=== PATIENT | male | born 1970 | race Caucasian/White ===

== ENCOUNTER 2017-07-19 23:23 | Emergency (ER) | payer OTHER ==
[2017-07-19 23:31] VITALS: BP 141/79; PULSE 69; RESP 18; TEMP 98.2
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
--- NOTE | 2017-07-20 00:31 | XR ---
EXAMINATION TYPE: XR ankle complete LT DATE OF EXAM: 07/20/2017 COMPARISON: NONE HISTORY: Pain TECHNIQUE: 3 views FINDINGS: Ankle mortise is anatomic. I see no fracture nor dislocation. There is an Achilles calcanea l spur. There is mild spurring of the anterior malleolus. IMPRESSION: Hypertrophic spurring. No fracture.
== END 2017-07-20 00:52 | disposition home or self-care (01) ==
LOC: EC 23:23
DX: S90.02XA Contusion of left ankle, initial encounter (principal); W22.8XXA Striking against or struck by other objects, initial encounter; Y92.69 Other specified industrial and construction area as the place of occurrence of the external cause; Y93.89 Activity, other specified; Y99.0 Civilian activity done for income or pay
CPT/HCPCS: 99283

== ENCOUNTER 2017-10-15 04:46 | Inpatient (IN) | payer OTHER ==
[2017-10-15] MEDS ORDERED: IPRATROPIUM-ALBUTEROL 3 ML NEB INHALATION STA ×2 (05:09→06:10)
[2017-10-15] MEDS ORDERED: methylPREDNISolone SOD SUCCI 125 MG/2 ML VIAL IV STA (05:12)
--- NOTE | 2017-10-15 05:15 | ED ---
General Adult HPI - General Chief complaint: Shortness of Breath Stated complaint: SOB Time Seen by Provider: 10/15/17 05:00 Source: patient, RN notes reviewed Mode of arrival: ambulatory Limitations: physical limitation - History of Present Illness Initial comments: Patient is a pleasant 47-year-old male presenting to the emergency department with difficulty in breathing. Symptoms started a couple of days ago. Symptoms have progressed especially today. Patient does have some cough. No fevers. Patient has had several episodes similar to this since the fall. 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 No history of COPD. No history of smoking. No chest pain. No fever. - Related Data Home Medications Medication Instructions Recorded Confirmed Albuterol Inhaler [Ventolin Hfa 2 puff INHALATION RT-Q4H PRN 08/21/17 08/21/17 Inhaler] Atorvastatin [Lipitor] 20 mg PO DAILY 08/21/17 08/21/17 Hydrochlorothiazide 25 mg PO DAILY 08/21/17 08/21/17 Lisinopril [Zestril] 20 mg PO DAILY 08/21/17 08/21/17 Sertraline [Zoloft] 100 mg PO DAILY 08/21/17 08/21/17 Previous Rx's Medication Instructions Recorded Levofloxacin [Levaquin] 500 mg PO DAILY #7 tab 08/23/17 predniSONE 10 mg PO DAILY #30 tab 08/23/17 Allergies Allergy/AdvReac Type Severity Reaction Status Date / Time No Known Allergies Allergy Verified 08/21/17 08:04 Review of Systems ROS Statement: Those systems with pertinent positive or pertinent negative responses have been documented in the HPI. ROS Other: All systems not noted in ROS Statement are negative. Constitutional: Denies: fever, chills Eyes: Denies: eye pain ENT: Denies: ear pain Respiratory: Reports: cough, dyspnea Cardiovascular: Denies: chest pain Endocrine: Denies: fatigue Gastrointestinal: Denies: abdominal pain Genitourinary: Denies: dysuria Musculoskeletal: Denies: back pain Skin: Denies: rash Neurological: Denies: weakness Past Medical History Past Medical History: Hyperlipidemia, Hypertension Additional Past Medical History / Comment(s): bronchitis History of Any Multi-Drug Resistant Organisms: None Reported Past Surgical History: No Surgical Hx Reported Additional Past Surgical History / Comment(s): spleen removed Past Psychological History: No Psychological Hx Reported Smoking Status: Never smoker Past Alcohol Use History: None Reported Past Drug Use History: None Reported General Exam Limitations: physical limitation General appearance: alert, obese Head exam: Present: atraumatic Eye exam: Present: normal appearance, PERRL ENT exam: Present: normal oropharynx Neck exam: Present: normal inspection Respiratory exam: Present: respiratory distress, wheezes, decreased breath sounds Cardiovascular Exam: Present: tachycardia GI/Abdominal exam: Present: soft. Absent: tenderness Extremities exam: Present: normal inspection. Absent: pedal edema, calf tenderness Neurological exam: Present: alert Psychiatric exam: Present: normal affect, normal mood Skin exam: Present: normal color Course Vital Signs 10/15/17 10/15/17 10/15/17 04:51 05:07 05:08 Temperature 97.8 F Pulse Rate 103 H 104 H Respiratory 28 H 28 H Rate Blood Pressure 136/86 O2 Sat by Pulse 91 L Oximetry 10/15/17 10/15/17 10/15/17 05:17 05:49 06:16 Temperature Pulse Rate 102 H 94 87 Respiratory 24 Rate Blood Pressure 151/79 O2 Sat by Pulse 95 Oximetry 10/15/17 06:26 Temperature Pulse Rate 89 Respiratory Rate Blood Pressure O2 Sat by Pulse Oximetry - Reevaluation(s) Reevaluation #1: 10/15/17 06:41 Patient still was short of breath with wheezing and given second breathing treatment. Patient still with some symptoms. Case was discussed in detail with Dr. zarate, who will admit for Dr. Mueller. Patient states he is scheduled to see Dr. Rae and he'll be placed on consult. EKG Findings - EKG Comments: EKG Findings:: Sinus tachycardia 102. TN 148. QRS 78. QT 312. QTC 406. Normal axis. Normal QRS. No acute ST change. Medical Decision Making - Lab Data Result diagrams: 10/15/17 05:00 10/15/17 05:00 Lab Results 10/15/17 10/15/17 10/15/17 Range/Units 05:00 05:00 05:00 WBC 14.7 H (3.8-10.6) k/uL RBC 5.09 (4.30-5.90) m/uL Hgb 15.1 (13.0-17.5) gm/dL Hct 46.2 (39.0-53.0) % MCV 90.8 (80.0-100.0) fL MCH 29.7 (25.0-35.0) pg MCHC 32.7 (31.0-37.0) g/dL RDW 14.2 (11.5-15.5) % Plt Count 324 (150-450) k/uL Neutrophils % 73 % Lymphocytes % 13 % Monocytes % 5 % Eosinophils % 7 % Basophils % 0 % Neutrophils # 10.7 H (1.3-7.7) k/uL Lymphocytes # 2.0 (1.0-4.8) k/uL Monocytes # 0.7 (0-1.0) k/uL Eosinophils # 1.0 H (0-0.7) k/uL Basophils # 0.1 (0-0.2) k/uL PT (9.0-12.0) sec INR (<1.2) APTT (22.0-30.0) sec D-Dimer (<0.60) mg/L FEU Sodium 140 (137-145) mmol/L Potassium 4.2 (3.5-5.1) mmol/L Chloride 103 (98-107) mmol/L Carbon Dioxide 26 (22-30) mmol/L Anion Gap 11 mmol/L BUN 30 H (9-20) mg/dL Creatinine 1.10 (0.66-1.25) mg/dL Est GFR (MDRD) Af Amer >60 (>60 ml/min/1.73 sqM) Est GFR (MDRD) Non-Af >60 (>60 ml/min/1.73 sqM) Glucose 116 H (74-99) mg/dL Calcium 9.6 (8.4-10.2) mg/dL Total Bilirubin 0.5 (0.2-1.3) mg/dL AST 26 (17-59) U/L ALT 39 (21-72) U/L Alkaline Phosphatase 63 (38-126) U/L Total Creatine Kinase 167 (55-170) U/L CK-MB (CK-2) 3.3 H* (0.0-2.4) ng/mL CK-MB (CK-2) Rel Index 2.0 Troponin I <0.012 (0.000-0.034) ng/mL NT-Pro-B Natriuret Pep pg/mL Total Protein 6.8 (6.3-8.2) g/dL Albumin 4.1 (3.5-5.0) g/dL Influenza Type A RNA (Not Detectd) Influenza Type B (PCR) (Not Detectd) 10/15/17 10/15/17 10/15/17 Range/Units 05:00 05:00 05:00 WBC (3.8-10.6) k/uL RBC (4.30-5.90) m/uL Hgb (13.0-17.5) gm/dL Hct (39.0-53.0) % MCV (80.0-100.0) fL MCH (25.0-35.0) pg MCHC (31.0-37.0) g/dL RDW (11.5-15.5) % Plt Count (150-450) k/uL Neutrophils % % Lymphocytes % % Monocytes % % Eosinophils % % Basophils % % Neutrophils # (1.3-7.7) k/uL Lymphocytes # (1.0-4.8) k/uL Monocytes # (0-1.0) k/uL Eosinophils # (0-0.7) k/uL Basophils # (0-0.2) k/uL PT 9.5 (9.0-12.0) sec INR 1.0 (<1.2) APTT 20.9 L (22.0-30.0) sec D-Dimer 0.85 H (<0.60) mg/L FEU Sodium (137-145) mmol/L Potassium (3.5-5.1) mmol/L Chloride (98-107) mmol/L Carbon Dioxide (22-30) mmol/L Anion Gap mmol/L BUN (9-20) mg/dL Creatinine (0.66-1.25) mg/dL Est GFR (MDRD) Af Amer (>60 ml/min/1.73 sqM) Est GFR (MDRD) Non-Af (>60 ml/min/1.73 sqM) Glucose (74-99) mg/dL Calcium (8.4-10.2) mg/dL Total Bilirubin (0.2-1.3) mg/dL AST (17-59) U/L ALT (21-72) U/L Alkaline Phosphatase (38-126) U/L Total Creatine Kinase (55-170) U/L CK-MB (CK-2) (0.0-2.4) ng/mL CK-MB (CK-2) Rel Index Troponin I (0.000-0.034) ng/mL NT-Pro-B Natriuret Pep 25 pg/mL Total Protein (6.3-8.2) g/dL Albumin (3.5-5.0) g/dL Influenza Type A RNA (Not Detectd) Influenza Type B (PCR) (Not Detectd) 10/15/17 Range/Units 05:14 WBC (3.8-10.6) k/uL RBC (4.30-5.90) m/uL Hgb (13.0-17.5) gm/dL Hct (39.0-53.0) % MCV (80.0-100.0) fL MCH (25.0-35.0) pg MCHC (31.0-37.0) g/dL RDW (11.5-15.5) % Plt Count (150-450) k/uL Neutrophils % % Lymphocytes % % Monocytes % % Eosinophils % % Basophils % % Neutrophils # (1.3-7.7) k/uL Lymphocytes # (1.0-4.8) k/uL Monocytes # (0-1.0) k/uL Eosinophils # (0-0.7) k/uL Basophils # (0-0.2) k/uL PT (9.0-12.0) sec INR (<1.2) APTT (22.0-30.0) sec D-Dimer (<0.60) mg/L FEU Sodium (137-145) mmol/L Potassium (3.5-5.1) mmol/L Chloride (98-107) mmol/L Carbon Dioxide (22-30) mmol/L Anion Gap mmol/L BUN (9-20) mg/dL Creatinine (0.66-1.25) mg/dL Est GFR (MDRD) Af Amer (>60 ml/min/1.73 sqM) Est GFR (MDRD) Non-Af (>60 ml/min/1.73 sqM) Glucose (74-99) mg/dL Calcium (8.4-10.2) mg/dL Total Bilirubin (0.2-1.3) mg/dL AST (17-59) U/L ALT (21-72) U/L Alkaline Phosphatase (38-126) U/L Total Creatine Kinase (55-170) U/L CK-MB (CK-2) (0.0-2.4) ng/mL CK-MB (CK-2) Rel Index Troponin I (0.000-0.034) ng/mL NT-Pro-B Natriuret Pep pg/mL Total Protein (6.3-8.2) g/dL Albumin (3.5-5.0) g/dL Influenza Type A RNA Not Detected (Not Detectd) Influenza Type B (PCR) Not Detected (Not Detectd) - Radiology Data Radiology results: image reviewed (Chest x-ray shows prominent pulmonary vascular. No consolidation.) Disposition Clinical Impression: Dyspnea Disposition: ADMITTED IP TO THIS HOSP Referrals: Barry Mueller DO [Primary Care Provider] - 1-2 days Decision Time: 06:43
[2017-10-15 05:19] LABS: Basophils # (A) 0.1 k/uL (0-0.2); Basophils % (A) 0 %; Eosinophils % (A) 7 %; HCT 46.2 % (39.0-53.0); HGB 15.1 gm/dL (13.0-17.5); Lymphocytes % (A) 13 %; MCH 29.7 pg (25.0-35.0); MCHC 32.7 g/dL (31.0-37.0); MCV 90.8 fL (80.0-100.0); Mean Platelet Volume 7.3; Monocytes # (A) 0.7 k/uL (0-1.0); Monocytes % (A) 5 %; Neutrophils # (A) 10.7 k/uL (1.3-7.7); Neutrophils % (A) 73 %; Platelet Count 324 k/uL (150-450); RBC 5.09 m/uL (4.30-5.90); RDW 14.2 % (11.5-15.5); WBC 14.7 k/uL (3.8-10.6)
[2017-10-15 05:28] LABS: Prothrombin Time 9.5 sec (9.0-12.0)
[2017-10-15 05:31] LABS: ALT 39 U/L (21-72); AST 26 U/L (17-59); Albumin 4.1 g/dL (3.5-5.0); Alkaline Phosphatase 63 U/L (38-126); Anion Gap 11 mmol/L; Blood Urea Nitrogen 30 mg/dL (9-20); Calcium 9.6 mg/dL (8.4-10.2); Carbon Dioxide 26 mmol/L (22-30); Chloride 103 mmol/L (98-107); Glucose 116 mg/dL (74-99); Potassium 4.2 mmol/L (3.5-5.1); Sodium 140 mmol/L (137-145); Total Bilirubin 0.5 mg/dL (0.2-1.3); Total Protein 6.8 g/dL (6.3-8.2)
[2017-10-15 05:35] LABS: Partial Thromboplastin Time 20.9 sec (22.0-30.0)
[2017-10-15 05:39] LABS: Creatine Kinase 167 U/L (55-170)
[2017-10-15 05:53] LABS: Troponin I <0.012 ng/mL (0.000-0.034)
[2017-10-15 05:58] LABS: Creatine Kinase MB 3.3 ng/mL (0.0-2.4)
--- NOTE | 2017-10-15 05:59 | XR ---
EXAM: XR Chest, 2 Views CLINICAL HISTORY: ITS.REASON XR Reason: difficulty breathing TECHNIQUE: Frontal and lateral views of the chest. COMPARISON: 08/22/2017. FINDINGS: Lungs: Prominent pulmonary vascularity. No confluent consolidation. Pleural space: Unremarkable. No pneumothorax. Heart: Stable cardiomediastinal silhouette. Mediastinum: See above. Bones/joints: Unremarkable. IMPRESSION: Prominent pulmonary vascularity. No confluent consolidation.
[2017-10-15] MEDS ORDERED: RX INFO: IV CONTRAST WAS GIVEN 1 EACH MISC MISCELLANE PRN (06:08)
[2017-10-15] MEDS ORDERED: IPRATROPIUM-ALBUTEROL 3 ML NEB INHALATION PRN (06:43)
--- NOTE | 2017-10-15 07:19 | CT ---
EXAMINATION TYPE: CT angio chest DATE OF EXAM: 10/15/2017 COMPARISON: NONE HISTORY: Chest pain, SOB for [address] DLP: 893.50 mGycm CONTRAST: CT chest with contrast and 3D reconstruction with MIP imaging is performed with IV Contrast, patient injected with 100 ml mL of Omnipaque 350. Contrast-enhanced CT of the chest was performed through the course of the pulmonary arteries with ulices g and mediastinal window settings submitted. 3D reconstruction with MIP imaging was also performed. PULMONARY ARTERIES: The pulmonary arteries and their major tributaries are patent. I do not see karen dence for sizable filling defect to suggest pulmonary embolic process. LUNGS: The lungs are clear and free of infiltrate. No evidence for atelectasis. No pulmonary nodule or mass is detected. No pleural effusion. MEDIASTINUM: Thoracic aorta is of normal caliber,however, evaluation is limited given timing of the contrast bolus. If there is concern for thoracic aortic pathology consider RAJIV. Correlate clinicall y . The heart is not enlarged. No evidence for mediastinal mass. No mediastinal lymph nodes greater than 1cm. HILAR STRUCTURES: No evidence for mass. No hilar lymph nodes greater than 1 cm. UPPER ABDOMEN: No significant abnormality is seen. IMPRESSION: 1. No evidence for Pulmonary embolism at this time.
[2017-10-15] MEDS: SODIUM CHLORIDE 0.9% 1,000 ML IV SCH ×2 (09:34→16:51)
[2017-10-15] MEDS: ATORVASTATIN 20 MG TAB PO SCH (10:19)
[2017-10-15] MEDS: HYDROCHLOROTHIAZIDE 25 MG TAB PO SCH (10:19)
[2017-10-15] MEDS: SERTRALINE 100 MG TAB PO SCH (10:19)
[2017-10-15] MEDS: LISINOPRIL 20 MG TAB PO SCH (10:19)
[2017-10-15] MEDS: ENOXAPARIN 40 MG/0.4 ML SYRINGE SQ SCH (10:19)
[2017-10-15] MEDS: IPRATROPIUM-ALBUTEROL 3 ML NEB INHALATION SCH ×3 (11:01→15:13)
[2017-10-15] MEDS ORDERED: methylPREDNISolone SOD SUCCI 125 MG/2 ML VIAL IV SCH (12:00)
[2017-10-15 12:27] LABS: Glucose,Whole Blood 195 mg/dL (75-99)
[2017-10-15] MEDS: INSULIN ASPART 100 UNIT/ML 1 ML 10 ML VIAL SQ SCH ×3 (13:36→22:37)
[2017-10-15 17:20] LABS: Glucose,Whole Blood 160 mg/dL (75-99)
--- NOTE | 2017-10-15 17:27 | HP ---
HISTORY AND PHYSICAL DATE OF ADMISSION: October 15, 2017. PRESENTING COMPLAINT: Short of breath, cough, wheezing. HISTORY OF PRESENTING COMPLAINT: This is a 47-year-old patient of Dr. Mueller. Here with his fiancee. Chronic stable medical conditions include hypertension, hyperlipidemia, depression, obesity. The patient presented with 3 days of increasing shortness of breath, cough, some brown sputum. No fever. No chills. The patient has been diagnosed last time with late onset asthma. The patient did have a positive home test for sleep apnea, did try CPAP machine, not with much help. The patient's weight is 158 pounds and he has put on about 20 pounds in the last 1 year. The patient was put on bronchodilators and steroids in the ER, with which he is feeling better. The patient is relatively active. 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 REVIEW OF SYSTEMS: CONSTITUTIONAL: None. HEENT: Occasional nasal stuffiness. Respiratory as above. Cardiovascular no chest pain. Gastrointestinal: None. Genitourinary none. Musculoskeletal: None. Dermatological and hematologic, lymphatic none. Psychiatry: Depression controlled. Neurological none. PAST HISTORY: Hypertension, hyperlipidemia, depression, splenectomy, asthma. PAST SURGICAL HISTORY: Splenectomy as a child. SOCIAL HISTORY: [employer], lives with his fijannettee. No smoking. No alcohol. FAMILY HISTORY: Coronary artery disease. HOME MEDICATIONS: 1. Zoloft 200 mg a day. 2. Zestril 20 mg a day. 3. Hydrochlorothiazide 25 mg a day. 4. Lipitor 20 mg p.o. daily. 5. Ventolin 2.5 q.4h p.r.n. 6. Ventolin HFA 2 puffs q.4h p.r.n. ALLERGIES: None. PHYSICAL EXAMINATION: Vital signs on presentation: Temperature 97.8, pulse 103, respiration 20, blood pressure 136/86, pulse ox 91% on room air. GENERAL APPEARANCE: Well built, BMI 44.9, sitting up, tired appearing. Eyes: Pupils equal. Conjunctivae normal. HEENT external appearance of nose and ears normal. Oral cavity normal. Neck: Short thick, JVD unable to assess. Mass not palpable. Respiratory effort increased. LUNGS: Diminished breath sounds. Prolonged expiration. Cardiovascular 1st and second sounds normal. No edema. Abdomen distended, soft. Liver and spleen not palpable. Lymphatics: No lymph node palpable in the neck and axillae. Psychiatry: Alert and oriented x3. Mood and affect normal. Neurological pupils equal. Cranial nerves grossly intact. Power and sensation grossly intact. INVESTIGATIONS: White count 14.7, hemoglobin 15.1, potassium 4.2, BUN 30, creatinine 1.10. ProBNP is 25. Troponin I is less than 0.012. Chest x-ray reveals some prominent pulmonary artery and some interstitial prominence. ASSESSMENT: 1. Possible acute exacerbation of mild persistent asthma. 2. Element of obesity hypoventilation syndrome. Patient has put on about 20 pounds in last 1 year. 3. Morbid obesity BMI 44.9. 4. Essential hypertension. 5. Hyperlipidemia. 6. Depression, not otherwise specified. 7. History of splenectomy. PLAN: Patient was put on nebulized bronchodilators in the ER and steroids to which he is feeling a bit better. The patient has increased the eosinophil in his blood work. We will have pulmonary look at that. Pulmonary was consulted. Home medications are resumed. Did have a lengthy talk with the patient and about weight loss. We will also student financial services counselor dietitian. Questions were answered. Copy to Dr. Mueller. MMODL / IJN: [id number] /
[2017-10-15] MEDS: ALBUTEROL NEBULIZED 2.5 MG/3 ML INHALATION SCH (19:35)
[2017-10-15 21:01] LABS: Glucose,Whole Blood 151 mg/dL (75-99)
[2017-10-16] MEDS: methylPREDNISolone SOD SUCCI 40 MG/ML 1 ML VIAL IV SCH ×4 (00:20→23:38)
[2017-10-16] MEDS: ALBUTEROL NEBULIZED 2.5 MG/3 ML INHALATION SCH ×4 (07:02→18:50)
[2017-10-16 07:35] LABS: Glucose,Whole Blood 135 mg/dL (75-99)
[2017-10-16] MEDS: INSULIN ASPART 100 UNIT/ML 1 ML 10 ML VIAL SQ SCH ×4 (07:54→21:36)
[2017-10-16] MEDS: ENOXAPARIN 40 MG/0.4 ML SYRINGE SQ SCH (07:54)
[2017-10-16] MEDS: SERTRALINE 100 MG TAB PO SCH (07:55)
[2017-10-16] MEDS: ATORVASTATIN 20 MG TAB PO SCH (07:55)
[2017-10-16] MEDS: LISINOPRIL 20 MG TAB PO SCH (07:55)
[2017-10-16] MEDS: HYDROCHLOROTHIAZIDE 25 MG TAB PO SCH (07:55)
--- NOTE | 2017-10-16 10:44 | ECHOF ---
Referral Reason:assess for Pulm HTN MEASUREMENTS -------- HEIGHT: 188.0 cm WEIGHT: 158.8 kg BP: 123/58 RVIDd: 3.3 cm (< 3.3) IVSd: 1.4 cm (0.6 - 1.1) LVIDd: 5.3 cm (3.9 - 5.3) LVPWd: 1.4 cm (0.6 - 1.1) IVSs: 1.8 cm LVIDs: 3.2 cm LVPWs: 1.7 cm LA Diam: 3.3 cm (2.7 - 3.8) Ao Diam: 3.7 cm (2.0 - 3.7) AV Cusp: 2.9 cm (1.5 - 2.6) MV EXCURSION: 18.807 mm (> 18.000) MV EF SLOPE: 67 mm/s (70 - 150) EPSS: 0.4 cm MV E Rocky: 0.95 m/s MV DecT: 193 ms MV A Rocky: 0.79 m/s MV E/A Ratio: 1.21 FINDINGS -------- Sinus rhythm. This was a technically difficult study with suboptimal views. The left ventricular size is normal. There is moderate concentric left ventricular hypertrophy. O verall left ventricular systolic function is normal with, an EF between 55 - 60 %. The right ventricle is mildly enlarged. The left atrium is normal in size. The right atrium was not well visualized. 5.0mg of Lumason was utilized for enhancement of images The aortic valve was not well visualized. The mitral valve is normal. There is trace to mild mitral regurgitation. No regurgitation noted The pulmonic valve was not well visualized. There is no pulmonic regurgitation present. The aortic root is dilated measuring 3.7cm. IVC Not well visulized. There is no pericardial effusion. CONCLUSIONS -------- 1. Sinus rhythm. 2. This was a technically difficult study with suboptimal views. 3. The left ventricular size is normal. 4. There is moderate concentric left ventricular hypertrophy. 5. Overall left ventricular systolic function is normal with, an EF between 55 - 60 %. 6. The right ventricle is mildly enlarged. 7. The left atrium is normal in size. 8. The right atrium was not well visualized. 9. 5.0mg of Lumason was utilized for enhancement of images 10. The aortic valve was not well visualized. 11. The mitral valve is normal. 12. There is trace to mild mitral regurgitation. 13. No regurgitation noted 14. The pulmonic valve was not well visualized. 15. There is no pulmonic regurgitation present. 16. The aortic root is dilated measuring 3.7cm. 17. IVC Not well visulized. 18. There is no pericardial effusion. SHAKER PLATE OPERATOR: Abeba Whitaker RDCS
[2017-10-16 11:17] VITALS: BMI 44.9
[2017-10-16 12:49] LABS: Glucose,Whole Blood 154 mg/dL (75-99)
--- NOTE | 2017-10-16 16:42 | P.PN ---
Progress Note - Text Progress Note Date: 10/16/17 DATE OF SERVICE: 10/16/2017 PRESENTING COMPLAINT: Short of breath cough wheezing HISTORY OF PRESENT ILLNESS: 47-year-old male who presented with 3 days of increasing shortness of breath cough some brown sputum, no fever no chills diagnosed last time he was admitted with late onset asthma. Positive home test for sleep apnea. Did try the CPAP but didn't help much. Patient's weight is 158 kg and is brought about 20 pounds over the last year. Put on bronchodilators and steroids in the ER and he feels better. 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 Admitted with acute exacerbation of mild persistent asthma. INTERVAL HISTORY: 10/16/2017: Patient lying in bed appears comfortable. Does have a pre-dry cough with some sputum production that is brownish in color. Short of breath with minimal exertion, continues to require oxygen support. Appetite is slowly improving. Eating between 50 and 75% of his meals. Ambulatory in the room. Mostly to and from the bathroom. Last BM prior to admission. REVIEW OF SYSTEMS: Done for constitutional ,cardiovascular, GI, pulmonary with relevant findings as above. CURRENT MEDICATIONS Albuterol sulfate, Lipitor, Lovenox, hydrochlorothiazide, NovoLog, Zestril, Solu -Medrol, Zoloft. PHYSICAL EXAM VITAL SIGNS: Temperature 97.0, pulse 85, respiratory rate 16, blood pressure 126/56, oxygen saturation 91% on room air. GENERAL APPEARANCE: Lying in bed, not in distress. HENT: Normocephalic, JVD not raised. Mass not palpable. Oral cavity normal, external appearance of ears and nose normal. EYES:Pupils equal. Conjunctiva normal. RESPIRATORY: Respiratory effort increased Lungs diminished bilaterally to auscultation. CARDIOVASCULAR: First and second sounds normal. No edema. ABDOMEN: Very obese Liver and spleen not palpable. No tenderness. No mass palpable. PSYCHIATRY: Alert and oriented x3. Mood and affect normal. INVESTIGATIONS: LABS: None new Echocardiogram: Sinus rhythm, EF between 55 and 60%, trace to mild mitral valve regurgitation ASSESSMENT: -Possible acute exacerbation of mild persistent asthma. -Medical obesity hypoventilation syndrome. Patient's been on about 20 pounds in the last year. -Morbid obesity body mass index 44.9. -Essential hypertension. -Hyperlipidemia. -Depression not otherwise specified. -History of splenectomy. PLAN: Continue nebulized bronchodilators and steroids which is helping him to feel somewhat better. Pulmonology consulted. Discussion had with the patient about weight loss and weight control. Both he and his fianc understood. Dietitian consulted. Plan of care discussed at the bedside with the patient they're agreeable. We will follow closely. EXPORT TRAFFIC DEPARTMENT MANAGER statement: Patient was seen and examined by nurse practitioner Valerie Tinsley and all elements of the case discussed with attending Dr. Lorenz
[2017-10-16 17:00] LABS: Glucose,Whole Blood 139 mg/dL (75-99)
[2017-10-16 21:05] LABS: Glucose,Whole Blood 208 mg/dL (75-99)
--- NOTE | 2017-10-16 21:52 | PN ---
PROGRESS NOTE DATE OF SERVICE: 10/16/2017 PRESENTING COMPLAINT: Shortness of breath. ATTENDING NOTE: The patient seen and examined by me. I discussed with my nurse practitioner, Ms. Tinsley. The patient presented with episodes of shortness of breath, cough, dark brown sputum. Still coughing up quite a bit. EXAMINATION: Afebrile, pulse 80, respirations 18, blood pressure 113/55, pulse ox 92% on room air. Decreased breath sounds. Some wheezing. CARDIOVASCULAR: First and second sounds normal. ASSESSMENT: 1. Acute exacerbation of mild intermittent asthma. 2. Element of obesity hypoventilation syndrome. Patient has put on further 20 pounds in the last 1 year. 3. Morbid obesity, BMI of 44.9. 4. Essential hypertension. 5. Hyperlipidemia. 6. Depression, not otherwise specified. 7. History of splenectomy. 8. Acute tracheobronchitis. PLAN: Continue current medication and treatment plan. Sputum will be sent off for fungal culture. Discussed with Dr. Rae from Pulmonary. The patient may need a bronchoscopy if does not improve significantly. MMODL / IJN: [id number] /
[2017-10-17] MEDS: MELATONIN 3 MG TABLET PO SCH ×2 (01:10→21:24)
[2017-10-17] MEDS: ALBUTEROL NEBULIZED 2.5 MG/3 ML INHALATION SCH ×4 (07:28→19:27)
[2017-10-17 07:43] LABS: Glucose,Whole Blood 128 mg/dL (75-99)
[2017-10-17] MEDS: INSULIN ASPART 100 UNIT/ML 1 ML 10 ML VIAL SQ SCH ×4 (08:07→21:25)
[2017-10-17] MEDS: ENOXAPARIN 40 MG/0.4 ML SYRINGE SQ SCH (10:22)
[2017-10-17] MEDS: HYDROCHLOROTHIAZIDE 25 MG TAB PO SCH (10:22)
[2017-10-17] MEDS: ATORVASTATIN 20 MG TAB PO SCH (10:22)
[2017-10-17] MEDS: methylPREDNISolone SOD SUCCI 40 MG/ML 1 ML VIAL IV SCH ×3 (10:22→22:50)
[2017-10-17] MEDS: LISINOPRIL 20 MG TAB PO SCH (10:23)
[2017-10-17] MEDS: SERTRALINE 100 MG TAB PO SCH (10:23)
[2017-10-17 12:02] LABS: Glucose,Whole Blood 125 mg/dL (75-99)
--- NOTE | 2017-10-17 12:32 | P.PN ---
Subjective Progress Note Date: 10/16/17 Principal diagnosis: Acute asthma exacerbation, tracheobronchitis purulent, severe morbid obesity obstructive sleep apnea, ALLERGIC asthma and ALLERGIC tracheobronchitis, hypertension and hypertensive cardiovascular disease 10/16/2017, patient seen eval examined during the round still very short of breath cough congestion is present patient is now producing purulent sputum6 pain and culture patient remains on IV steroids and breathing treatments, , tolerating well chest x-ray and CAT scan failed to reveal any new pneumonia like findings will monitor patient off of antibiotics for now more test results are available 47-year-old male who presented with 3 days of increasing shortness of breath cough some brown sputum, no fever no chills diagnosed last time he was admitted with late onset asthma. Positive home test for sleep apnea. Did try the CPAP but didn't help much. Patient's weight is 158 kg and is brought about 20 pounds over the last year. Put on bronchodilators and steroids in the ER and he feels better. 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 Admitted with acute exacerbation of mild persistent asthma. Objective - Vital Signs Vital signs: Vital Signs Temp 96.5 F L 10/17/17 07:00 Pulse 68 10/17/17 11:44 Resp 16 10/17/17 07:00 BP 139/88 10/17/17 07:00 Pulse Ox 95 10/17/17 07:31 Intake & Output 10/16/17 10/17/17 10/17/17 18:59 06:59 18:59 Intake Total 200 Balance 200 Weight 158.757 kg Intake: Oral 200 Other: # Voids 1 1 - Exam GENERAL APPEARANCE: Lying in bed, mild respiratory distress. HENT: Normocephalic, JVD not raised. Mass not palpable. Oral cavity normal, narrow oropharyngeal opening external appearance of ears and nose normal. EYES:Pupils equal. Conjunctiva normal. RESPIRATORY: Respiratory effort increased Lungs diminished bilaterally to auscultation, inspiratory expiratory wheezing and rhonchi present CARDIOVASCULAR: First and second sounds normal. No edema. ABDOMEN: Very obese Liver and spleen not palpable. No tenderness. No mass palpable. PSYCHIATRY: Alert and oriented x3. Mood and affect normal. 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 - Labs CBC & Chem 7: 10/15/17 05:00 10/15/17 05:00 Labs: Abnormal Lab Results - Last 24 Hours (Table) 10/16/17 10/16/17 10/16/17 Range/Units 12:15 16:55 20:56 POC Glucose (mg/dL) 154 H 139 H 208 H (75-99) mg/dL 10/17/17 10/17/17 Range/Units 07:30 11:57 POC Glucose (mg/dL) 128 H 125 H (75-99) mg/dL Microbiology - Last 24 Hours (Table) 10/16/17 11:00 Gram Stain - Preliminary Sputum 10/16/17 07:53 Fungal Culture - Preliminary Sputum - Imaging and Cardiology Chest x-ray: report reviewed, image reviewed CT scan - chest: report reviewed, image reviewed (Finding as noted above) Assessment and Plan Assessment: Acute asthma exacerbation Suspect purulent tracheobronchitis Developing COPD Severe morbid obesity and obesity hypoventilation Hypertension hypertensive cardiovascular disease Plan: Continue breathing treatments and IV steroids Follow up on sputum culture results and reports Continue supportive care care plan discussed with the patient and family at length will follow Time with Patient: Greater than 30
--- NOTE | 2017-10-17 12:35 | P.PN ---
Subjective Progress Note Date: 10/17/17 Principal diagnosis: Acute asthma exacerbation, tracheobronchitis purulent, severe morbid obesity obstructive sleep apnea, ALLERGIC asthma and ALLERGIC tracheobronchitis, hypertension and hypertensive cardiovascular disease 10/17/2017, patient seen eval examined during the rounds still have cough sputum is more purulent now sputum findings in Gram stain reviewed it appears to be mixed bacteria with no significant predominance is seen nightly color appearances history of the splenectomy in the past consider starting IV Rocephin with continuation of current therapeutic intervention, patient has significant exposure to molds with that we will check ALLERGY panel, patient will benefit from bronchoscopy will schedule sometime next week with further recommendations pending care plan discussed with patient and significant other at length 10/16/2017, patient seen eval examined during the round still very short of breath cough congestion is present patient is now producing purulent sputum6 pain and culture patient remains on IV steroids and breathing treatments, , tolerating well chest x-ray and CAT scan failed to reveal any new pneumonia like findings will monitor patient off of antibiotics for now more test results are available 47-year-old male who presented with 3 days of increasing shortness of breath cough some brown sputum, no fever no chills diagnosed last time he was admitted with late onset asthma. Positive home test for sleep apnea. Did try the CPAP but didn't help much. Patient's weight is 158 kg and is brought about 20 pounds over the last year. Put on bronchodilators and steroids in the ER and he feels better. 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 Admitted with acute exacerbation of mild persistent asthma. Objective - Vital Signs Vital signs: Vital Signs Temp 96.5 F L 10/17/17 07:00 Pulse 68 10/17/17 11:44 Resp 16 10/17/17 07:00 BP 139/88 10/17/17 07:00 Pulse Ox 95 10/17/17 07:31 Intake & Output 10/16/17 10/17/17 10/17/17 18:59 06:59 18:59 Intake Total 200 Balance 200 Weight 158.757 kg Intake: Oral 200 Other: # Voids 1 1 - Exam GENERAL APPEARANCE: Lying in bed, mild respiratory distress. HENT: Normocephalic, JVD not raised. Mass not palpable. Oral cavity normal, narrow oropharyngeal opening external appearance of ears and nose normal. EYES:Pupils equal. Conjunctiva normal. RESPIRATORY: Respiratory effort increased Lungs diminished bilaterally to auscultation, inspiratory expiratory wheezing and rhonchi present CARDIOVASCULAR: First and second sounds normal. No edema. ABDOMEN: Very obese Liver and spleen not palpable. No tenderness. No mass palpable. PSYCHIATRY: Alert and oriented x3. Mood and affect normal. 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 - Labs CBC & Chem 7: 10/15/17 05:00 10/15/17 05:00 Labs: Abnormal Lab Results - Last 24 Hours (Table) 10/16/17 10/16/17 10/16/17 Range/Units 12:15 16:55 20:56 POC Glucose (mg/dL) 154 H 139 H 208 H (75-99) mg/dL 10/17/17 10/17/17 Range/Units 07:30 11:57 POC Glucose (mg/dL) 128 H 125 H (75-99) mg/dL Microbiology - Last 24 Hours (Table) 10/16/17 11:00 Gram Stain - Preliminary Sputum 10/16/17 07:53 Fungal Culture - Preliminary Sputum Assessment and Plan Assessment: Acute asthma exacerbation purulent tracheobronchitis Developing COPD Severe morbid obesity and obesity hypoventilation Hypertension hypertensive cardiovascular disease Asplenia/status post a splenectomy and remote past Plan: Continue breathing treatments and IV steroids Follow up on sputum culture results and reports, preliminary report reviewed Continue supportive care care plan discussed with the patient and family at length will follow Initiate patient on the IV Rocephin send labs for ALLERGIC asthma Time with Patient: Greater than 30
[2017-10-17] MEDS: cefTRIAXone IN SWFI 1,000 MG/10 ML SYRINGE IVP SCH (13:19)
[2017-10-17] MEDS: AZITHROMYCIN 500 MG TAB PO SCH (13:20)
--- NOTE | 2017-10-17 13:20 | CONS ---
CONSULTATION DATE OF SERVICE: 10/15/2017. REASON FOR CONSULTATION: Cough, shortness of breath and wheezing. HISTORY OF PRESENTING ILLNESS: Mr. Bora Sands is seen, evaluated and examined on October 15, 2017, for developing and worsening of shortness of breath and breathing difficulty. This is a delayed dictation of services provided on that day. The patient presented in the emergency department with a 3- to 4-day history of progressive increasing breathing difficulty, cough, chest tightness. The patient has a history of chronic persistent severe asthma, has been on bronchodilator; however, his symptoms have not been improving significantly. He has been treated as an outpatient with oral prednisone steroid without any significant continued relief. Of note that once he comes off of the steroids, his symptoms relapse. The patient, however, attributes ongoing symptoms to fumes and mist exposure at his workplace as well. In addition to the above, patient has a severe degree of sleep-disordered breathing and sleep apnea. He has used a CPAP machine. He has acquired over 20 to 30 pounds in the last 6 months to a year as well. Since he has been placed on bronchodilators and steroids he is feeling slightly better. I was asked to evaluate this patient further. PAST MEDICAL HISTORY: 1. Severe morbid obesity. 2. Obstructive sleep apnea. 3. Hypertension, hypertensive cardiovascular disease. 4. Dyslipidemia. 5. Mood disorder. 6. Depression. 7. History of splenectomy. 8. Chronic persistent asthma. PAST SURGICAL HISTORY: Significant for splenectomy. FAMILY HISTORY AND SOCIAL HISTORY: Lives with anamaria. Denies any smoking, ethanol substance or substance use. 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 ALLERGIES: NO KNOWN DRUG ALLERGY. HOME MEDICATIONS: 1. Ventolin HFA 2 puffs 4 times a day as needed. 2. Lipitor 20 mg daily. 3. Hydrochlorothiazide 25 mg daily. 4. Zestril 20 mg daily. 5. Zoloft 100 mg daily. 6. Prednisone tapering dose 10 mg daily lately. 7. Levaquin 500 mg daily. REVIEW OF SYSTEMS: PLANT GUIDE: Denies any loss of consciousness or hemiparesis. CARDIORESPIRATORY: Otherwise unremarkable and noncontributory except as dictated above. GI, : Otherwise unremarkable and noncontributory. MUSCULOSKELETAL AND DERMATOLOGICAL: Unremarkable and noncontributory. CURRENT MEDICATIONS: Current medications while in the hospital include: 1. Tylenol as needed. 2. DuoNeb unit dose 4 times a day and as needed. 3. Xanax 0.5 four times a day. 4. Lovenox 40 mg daily. 5. HydroDIURIL 25 mg daily. 6. Sliding scale insulin. 7. Zestril 20 mg daily. 8. Melatonin 3 mg at bedtime. 9. Solu-Medrol 40 mg daily. 10.Zoloft 200 mg daily. 11.Solu-Medrol 40 mg q.8. PHYSICAL EXAMINATION: Blood pressure is 136/86. Respiratory rate is 20. Heart rate is 110, temperature 98, saturation 91% on room air. BMI is 45. HEENT: Atraumatic, normocephalic. Pharynx is clear. Narrow pharyngeal opening present. Mallampati grade 4. Nasal mucosa is congested. Inferior turbinate hypertrophy. NECK: Supple without any lymphadenopathy, jugular venous distention or carotid bruit. LUNGS: Bilateral inspiratory and expiratory wheezing and rhonchi are present with prolonged expiratory phase. HEART: Regular rate, rhythm. S1, S2 audible. ABDOMEN: Soft. No rebound, rigidity. EXTREMITIES: Plus one peripheral pulses. NEUROLOGICAL EXAMINATION: Otherwise awake and alert. LABS: Reviewed. Medications reviewed. White cell count is 14,700, hemoglobin 15, hematocrit 46, platelet count of 324,000. PT, INR, PTT within normal limits. D-dimer is 0.85. Sodium 140, potassium 4.2. BUN and creatinine are 30 and 1.1. Glucose 116. CK-MB is 3.3. Influenza A and B both negative. BNP is 25. RADIOGRAPHIC STUDIES: X-ray and CT scan reviewed. EKG performed in the emergency department revealed sinus tachycardia; otherwise unremarkable EKG. The chest x-ray performed on October 15, 2017, revealed prominent interstitial markings and pulmonary vasculature; however, no consolidation or active infiltrate identified. No mass noted. CT scan of the chest performed on October 15 revealed absence of pulmonary embolism, lungs unremarkable. No significant mediastinal abnormality identified. IMPRESSION: 1. Acute asthmatic bronchitis with purulent tracheobronchitis. 2. Baseline developing chronic obstructive pulmonary disease related to chronic persistent severe asthma with acute exacerbation. 3. Severe morbid obesity with component of obesity hypoventilation. BMI over 45. 4. Hypertension hypertensive cardiovascular disease. 5. Dyslipidemia. 6. History of prior splenectomy. PLAN AND RECOMMENDATIONS: I agree with IV steroids, breathing treatments. Monitor clinical course closely. Once the sputum is obtained, we will review that. Further recommendations pending. Increase activity as tolerated. Patient has been counseled about sleep-disordered breathing and sleep apnea and effects on cardiovascular, cerebrovascular, endocrine and psychosocial. Will follow with you closely. Further recommendations pending. SOURCE OF CONSULT: October 15, 2017. MMODL / IJN: [id number] /
--- NOTE | 2017-10-17 16:56 | PN ---
PROGRESS NOTE DATE OF SERVICE: 10/17/2017 This 47-year-old gentleman with a past history of multiple medical problems including asthma, was admitted with acute asthma acute exacerbation. The patient also had extensive exposure to mold at work place. Pulmonary is following the patient closely. Lung cultures have been sought. The patient is closely monitored. PAST MEDICAL HISTORY: Reviewed. REVIEW OF SYSTEMS: CARDIOVASCULAR: No angina. RESPIRATORY: As mentioned earlier. GI: As mentioned earlier. : No dysuria. NERVOUS SYSTEM: No numbness or weakness. CURRENT MEDICATIONS: 1. Ventolin 2.5 q.i.d. 2. Lipitor 20 mg. 4. Rocephin 1 g daily. 5. Lovenox 40 mg subcu. 6. HydroDIURIL 25 mg daily. 7. NovoLog q.h.s. 8. Zestril 20 mg. 9. Melatonin. 10.Solu-Medrol. 11.Zoloft. PHYSICAL EXAM: Patient is alert, oriented x3. Pulse 81, blood pressure 141/84, respiration 18, temperature 97.4, pulse ox 93% on room air. HEENT: Conjunctivae normal. Oral mucous moist. NECK: No jugular venous distention. No carotid bruit. No thyroid enlargement. CARDIOVASCULAR: S1, S2. No S3, no S4. RESPIRATORY: Breath sounds diminished in the bases. Bilateral scattered rhonchi and crackles. Expiratory wheezing also heard. ABDOMEN: Soft, nontender. No mass palpable. LEGS: No edema, no swelling. NERVOUS SYSTEM: Higher functions as mentioned earlier. Moves all four limbs. No focal deficits LYMPHATICS: No ulcer, rash or bleeding. SKIN: No ulcer, rash or bleeding. LABS: At this time shows Accu-Cheks are 128, 125. WBC 14.7. Chest CTA showed no evidence of pulmonary embolism and 2D echo, which was done earlier, showed ejection fraction of 50- 60%. ASSESSMENT: 1. Acute bronchial asthma acute exacerbation with acute purulent tracheobronchitis. 2. History of exposure to black mold. 3. Increased WBC. 4. Elevated random blood sugar secondary to steroids. 5. Obesity with body mass index of 44.9. 6. History of hypertension. 7. History hyperlipidemia. 8. History of sleep apnea. 9. History bronchitis. 10.History of obstructive sleep apnea. 11.History of depression. RECOMMENDATIONS AND DISCUSSION: This 47-year-old gentleman who presented with multiple complex medical issues, will monitor the patient closely. Continue the current management and symptomatic treatment. Otherwise at this time I recommend continue with bronchodilators. Continue with empiric antibiotics. I recommend to monitor blood sugars closely. Also recommend allergy testing in an outpatient setting. Prognosis guarded because of multiple complex medical issues. Further recommendations to follow. Closely follow with Pulmonary, Dr. Rae. CHRISTINE / CHESTERN: [id number] / [facility] HOSPITALClaudia
[2017-10-17 16:57] LABS: Glucose,Whole Blood 148 mg/dL (75-99)
[2017-10-17] MEDS: SYMBICORT 160-4.5 MCG INHALER INHALATION SCH (19:41)
[2017-10-17 21:22] LABS: Glucose,Whole Blood 145 mg/dL (75-99)
[2017-10-17] MEDS: MONTELUKAST 10 MG TAB PO SCH (21:24)
[2017-10-18 07:15] LABS: Glucose,Whole Blood 114 mg/dL (75-99)
[2017-10-18] MEDS: INSULIN ASPART 100 UNIT/ML 1 ML 10 ML VIAL SQ SCH ×4 (07:54→22:05)
[2017-10-18] MEDS: SYMBICORT 160-4.5 MCG INHALER INHALATION SCH ×2 (09:07→20:49)
[2017-10-18] MEDS: ALBUTEROL NEBULIZED 2.5 MG/3 ML INHALATION SCH ×4 (09:07→20:49)
[2017-10-18 09:13] LABS: Basophils % (A) 0 %; Eosinophils # (A) 0.1 k/uL (0-0.7); Eosinophils % (A) 0 %; HCT 47.2 % (39.0-53.0); HGB 14.6 gm/dL (13.0-17.5); Lymphocytes # (A) 1.1 k/uL (1.0-4.8); Lymphocytes % (A) 7 %; MCH 29.3 pg (25.0-35.0); MCV 94.5 fL (80.0-100.0); Mean Platelet Volume 7.7; Monocytes # (A) 0.6 k/uL (0-1.0); Monocytes % (A) 3 %; Neutrophils % (A) 89 %; Platelet Count 297 k/uL (150-450); RBC 4.99 m/uL (4.30-5.90); RDW 14.5 % (11.5-15.5); WBC 16.8 k/uL (3.8-10.6)
[2017-10-18 09:43] LABS: ALT 35 U/L (21-72); AST 23 U/L (17-59); Albumin 3.5 g/dL (3.5-5.0); Alkaline Phosphatase 51 U/L (38-126); Anion Gap 10 mmol/L; Blood Urea Nitrogen 26 mg/dL (9-20); Calcium 9.8 mg/dL (8.4-10.2); Carbon Dioxide 26 mmol/L (22-30); Chloride 102 mmol/L (98-107); Glucose 143 mg/dL (74-99); Potassium 5.1 mmol/L (3.5-5.1); Sodium 138 mmol/L (137-145); Total Bilirubin 0.7 mg/dL (0.2-1.3); Total Protein 6.3 g/dL (6.3-8.2)
[2017-10-18] MEDS: methylPREDNISolone SOD SUCCI 40 MG/ML 1 ML VIAL IV SCH ×3 (10:00→23:47)
[2017-10-18] MEDS: ATORVASTATIN 20 MG TAB PO SCH (10:00)
[2017-10-18] MEDS: HYDROCHLOROTHIAZIDE 25 MG TAB PO SCH (10:01)
[2017-10-18] MEDS: cefTRIAXone IN SWFI 1,000 MG/10 ML SYRINGE IVP SCH (10:01)
[2017-10-18] MEDS: AZITHROMYCIN 500 MG TAB PO SCH (10:01)
[2017-10-18] MEDS: LISINOPRIL 20 MG TAB PO SCH (10:01)
[2017-10-18] MEDS: SERTRALINE 100 MG TAB PO SCH (10:01)
[2017-10-18] MEDS: ENOXAPARIN 40 MG/0.4 ML SYRINGE SQ SCH (10:01)
[2017-10-18 12:11] LABS: Glucose,Whole Blood 127 mg/dL (75-99)
[2017-10-18 16:48] LABS: Glucose,Whole Blood 152 mg/dL (75-99)
[2017-10-18 20:33] LABS: Glucose,Whole Blood 186 mg/dL (75-99)
[2017-10-18] MEDS: MONTELUKAST 10 MG TAB PO SCH (21:25)
[2017-10-18] MEDS: MELATONIN 3 MG TABLET PO SCH (21:25)
--- NOTE | 2017-10-18 22:30 | PN ---
PROGRESS NOTE DATE OF SERVICE: 10/18/2017. This 47-year-old gentleman was admitted after asthma acute exacerbation is being closely monitored. Dr. Rae is planning a bronchoscopy tomorrow. No chest pain. No palpitations. No fever. EXAM: Alert and oriented times three. Pulse 85. Blood pressure 161/83, respiratory rate 16, temperature 97.7, pulse ox 98% on room air. HEENT is conjunctivae normal. Neck is no jugular venous distention. Cardiovascular: S1, S2. Respirations: Breath sounds diminished in the bases. Scattered rhonchi and crackles. Abdomen is soft, nontender. Legs are no edema. No swelling. Central nervous system: No focal deficits. LABS: WBC 16.8, hemoglobin 14.6, glucose 143. ASSESSMENT: 1. Acute bronchial asthma acute exacerbation with acute purulent tracheobronchitis. 2. History of exposure to black mold. 3. Increased WBC. 4. Elevated random blood sugar possibly secondary to steroids. 5. Obesity with body mass index of 44.9. 6. Hypertension. 7. Hyperlipidemia. 8. History of sleep apnea. 9. History of bronchitis. 10.History of obstructive sleep apnea. 11.History of depression. RECOMMENDATIONS AND DISCUSSION: To continue current medications, management and symptomatic treatment. Continue steroids. Continue bronchodilators and antibiotics. Possible bronchoscopy per Pulmonary. Guarded prognosis because of multiple complex medical issues. MMODL / IJN: [id number] /
[2017-10-19 07:21] LABS: Glucose,Whole Blood 123 mg/dL (75-99)
[2017-10-19] MEDS: SYMBICORT 160-4.5 MCG INHALER INHALATION SCH ×2 (07:27→19:37)
[2017-10-19] MEDS: ALBUTEROL NEBULIZED 2.5 MG/3 ML INHALATION SCH ×4 (07:27→19:37)
[2017-10-19] MEDS: INSULIN ASPART 100 UNIT/ML 1 ML 10 ML VIAL SQ SCH ×4 (08:05→22:11)
[2017-10-19 08:28] LABS: Basophils % (A) 0 %; Eosinophils % (A) 0 %; HCT 48.5 % (39.0-53.0); HGB 15.1 gm/dL (13.0-17.5); Lymphocytes # (A) 1.1 k/uL (1.0-4.8); Lymphocytes % (A) 7 %; MCH 28.8 pg (25.0-35.0); MCHC 31.1 g/dL (31.0-37.0); MCV 92.8 fL (80.0-100.0); Mean Platelet Volume 7.4; Monocytes # (A) 0.7 k/uL (0-1.0); Monocytes % (A) 4 %; Neutrophils # (A) 14.8 k/uL (1.3-7.7); Neutrophils % (A) 88 %; Platelet Count 345 k/uL (150-450); RBC 5.23 m/uL (4.30-5.90); RDW 14.2 % (11.5-15.5); WBC 16.8 k/uL (3.8-10.6)
[2017-10-19 08:31] LABS: Anion Gap 9 mmol/L; Blood Urea Nitrogen 29 mg/dL (9-20); Calcium 10.1 mg/dL (8.4-10.2); Carbon Dioxide 27 mmol/L (22-30); Chloride 101 mmol/L (98-107); Glucose 123 mg/dL (74-99); Potassium 5.6 mmol/L (3.5-5.1); Sodium 137 mmol/L (137-145)
[2017-10-19] MEDS: SERTRALINE 100 MG TAB PO SCH (10:12)
[2017-10-19] MEDS: ATORVASTATIN 20 MG TAB PO SCH (10:13)
[2017-10-19] MEDS: HYDROCHLOROTHIAZIDE 25 MG TAB PO SCH (10:13)
[2017-10-19] MEDS: ENOXAPARIN 40 MG/0.4 ML SYRINGE SQ SCH (10:13)
[2017-10-19] MEDS: methylPREDNISolone SOD SUCCI 40 MG/ML 1 ML VIAL IV SCH ×3 (10:13→23:42)
[2017-10-19] MEDS: LISINOPRIL 20 MG TAB PO SCH (10:13)
[2017-10-19] MEDS: AZITHROMYCIN 500 MG TAB PO SCH (10:13)
[2017-10-19] MEDS: cefTRIAXone IN SWFI 1,000 MG/10 ML SYRINGE IVP SCH (10:21)
[2017-10-19] MEDS ORDERED: SODIUM POLYSTYRENE SULFONATE 15 GM/60 ML BOTTLE PO STA (11:04)
[2017-10-19 12:37] LABS: Glucose,Whole Blood 103 mg/dL (75-99)
--- NOTE | 2017-10-19 12:44 | P.PN ---
Subjective Progress Note Date: 10/18/17 (Late entry note) Principal diagnosis: Acute asthma exacerbation, tracheobronchitis purulent, severe morbid obesity obstructive sleep apnea, ALLERGIC asthma and ALLERGIC tracheobronchitis, hypertension and hypertensive cardiovascular disease 10/18/2017, patient seen eval examined during the rounds clinically overall not much change cough congestion shortness of breath is still there gets wheezing however does respond well with the breathing treatments and antibiotics 10/17/2017, patient seen eval examined during the rounds still have cough sputum is more purulent now sputum findings in Gram stain reviewed it appears to be mixed bacteria with no significant predominance is seen nightly color appearances history of the splenectomy in the past consider starting IV Rocephin with continuation of current therapeutic intervention, patient has significant exposure to molds with that we will check ALLERGY panel, patient will benefit from bronchoscopy will schedule sometime next week with further recommendations pending care plan discussed with patient and significant other at length 10/16/2017, patient seen eval examined during the round still very short of breath cough congestion is present patient is now producing purulent sputum6 pain and culture patient remains on IV steroids and breathing treatments, , tolerating well chest x-ray and CAT scan failed to reveal any new pneumonia like findings will monitor patient off of antibiotics for now more test results are available 47-year-old male who presented with 3 days of increasing shortness of breath cough some brown sputum, no fever no chills diagnosed last time he was admitted with late onset asthma. Positive home test for sleep apnea. Did try the CPAP but didn't help much. Patient's weight is 158 kg and is brought about 20 pounds over the last year. Put on bronchodilators and steroids in the ER and he feels better. 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 Admitted with acute exacerbation of mild persistent asthma. Objective - Vital Signs Vital signs: Vital Signs Temp 96.6 F L 10/19/17 07:00 Pulse 80 10/19/17 11:37 Resp 16 10/19/17 07:00 BP 140/84 10/19/17 07:00 Pulse Ox 94 L 10/19/17 07:00 Intake & Output 10/18/17 10/19/17 10/19/17 18:59 06:59 18:59 Intake Total 1200 Balance 1200 Intake: Oral 1200 Other: # Voids 3 2 - Exam GENERAL APPEARANCE: Lying in bed, mild respiratory distress. HENT: Normocephalic, JVD not raised. Mass not palpable. Oral cavity normal, narrow oropharyngeal opening external appearance of ears and nose normal. EYES:Pupils equal. Conjunctiva normal. RESPIRATORY: Respiratory effort increased Lungs diminished bilaterally to auscultation, inspiratory expiratory wheezing and rhonchi present CARDIOVASCULAR: First and second sounds normal. No edema. ABDOMEN: Very obese Liver and spleen not palpable. No tenderness. No mass palpable. PSYCHIATRY: Alert and oriented x3. Mood and affect normal. 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 - Labs CBC & Chem 7: 10/19/17 07:31 10/19/17 07:31 Labs: Abnormal Lab Results - Last 24 Hours (Table) 10/18/17 10/18/17 10/18/17 Range/Units 08:14 16:46 20:32 WBC (3.8-10.6) k/uL Neutrophils # (1.3-7.7) k/uL Potassium (3.5-5.1) mmol/L BUN (9-20) mg/dL Glucose (74-99) mg/dL POC Glucose (mg/dL) 152 H 186 H (75-99) mg/dL IgE 188.00 H (0.00-114.00) IU/mL 10/19/17 10/19/17 10/19/17 Range/Units 07:17 07:31 07:31 WBC 16.8 H (3.8-10.6) k/uL Neutrophils # 14.8 H (1.3-7.7) k/uL Potassium 5.6 H (3.5-5.1) mmol/L BUN 29 H (9-20) mg/dL Glucose 123 H (74-99) mg/dL POC Glucose (mg/dL) 123 H (75-99) mg/dL IgE (0.00-114.00) IU/mL 10/19/17 Range/Units 12:24 WBC (3.8-10.6) k/uL Neutrophils # (1.3-7.7) k/uL Potassium (3.5-5.1) mmol/L BUN (9-20) mg/dL Glucose (74-99) mg/dL POC Glucose (mg/dL) 103 H (75-99) mg/dL IgE (0.00-114.00) IU/mL Microbiology - Last 24 Hours (Table) 10/16/17 11:00 Gram Stain - Final Sputum Sputum Culture - Final Final sputum culture is normal respiratory papa Assessment and Plan Assessment: Acute asthma exacerbation purulent tracheobronchitis Developing COPD Severe morbid obesity and obesity hypoventilation Hypertension hypertensive cardiovascular disease Asplenia/status post a splenectomy and remote past Plan: Continue breathing treatments and IV steroids Follow up on sputum culture results and reports, preliminary report reviewed Continue supportive care care plan discussed with the patient and family at length will follow Initiate patient on the IV Rocephin send labs for ALLERGIC asthma Time with Patient: Greater than 30
--- NOTE | 2017-10-19 12:46 | P.PN ---
Subjective Progress Note Date: 10/19/17 Principal diagnosis: Acute asthma exacerbation, tracheobronchitis purulent, severe morbid obesity obstructive sleep apnea, ALLERGIC asthma and ALLERGIC tracheobronchitis, hypertension and hypertensive cardiovascular disease 10/19/2017, patient seen eval reexamined during the rounds care plan discussed with the patient patient and the mother present at bedside as well as as well as the RN clinically slightly better with wheezing cough congestion is improved but still feel thick tenacious secretions patient is being scheduled for bronchoscopy and bronchoalveolar lavage and possible biopsies any significant pathology in the airways have been noted he is tentatively being scheduled for a tomorrow procedure explained to the patient and family at length risk complication and alternative also explained 10/18/2017, patient seen eval examined during the rounds clinically overall not much change cough congestion shortness of breath is still there gets wheezing however does respond well with the breathing treatments and antibiotics 10/17/2017, patient seen eval examined during the rounds still have cough sputum is more purulent now sputum findings in Gram stain reviewed it appears to be mixed bacteria with no significant predominance is seen nightly color appearances history of the splenectomy in the past consider starting IV Rocephin with continuation of current therapeutic intervention, patient has significant exposure to molds with that we will check ALLERGY panel, patient will benefit from bronchoscopy will schedule sometime next week with further recommendations pending care plan discussed with patient and significant other at length 10/16/2017, patient seen eval examined during the round still very short of breath cough congestion is present patient is now producing purulent sputum6 pain and culture patient remains on IV steroids and breathing treatments, , tolerating well chest x-ray and CAT scan failed to reveal any new pneumonia like findings will monitor patient off of antibiotics for now more test results are available 47-year-old male who presented with 3 days of increasing shortness of breath cough some brown sputum, no fever no chills diagnosed last time he was admitted with late onset asthma. Positive home test for sleep apnea. Did try the CPAP but didn't help much. Patient's weight is 158 kg and is brought about 20 pounds over the last year. Put on bronchodilators and steroids in the ER and he feels better. 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 Admitted with acute exacerbation of mild persistent asthma. Objective - Vital Signs Vital signs: Vital Signs Temp 96.6 F L 10/19/17 07:00 Pulse 80 10/19/17 11:37 Resp 16 10/19/17 07:00 BP 140/84 10/19/17 07:00 Pulse Ox 94 L 10/19/17 07:00 Intake & Output 10/18/17 10/19/17 10/19/17 18:59 06:59 18:59 Intake Total 1200 Balance 1200 Intake: Oral 1200 Other: # Voids 3 2 - Exam GENERAL APPEARANCE: Lying in bed, mild respiratory distress. HENT: Normocephalic, JVD not raised. Mass not palpable. Oral cavity normal, narrow oropharyngeal opening external appearance of ears and nose normal. EYES:Pupils equal. Conjunctiva normal. RESPIRATORY: Respiratory effort increased Lungs diminished bilaterally to auscultation, inspiratory expiratory wheezing and rhonchi present CARDIOVASCULAR: First and second sounds normal. No edema. ABDOMEN: Very obese Liver and spleen not palpable. No tenderness. No mass palpable. PSYCHIATRY: Alert and oriented x3. Mood and affect normal. 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 - Labs CBC & Chem 7: 10/19/17 07:31 10/19/17 07:31 Labs: Abnormal Lab Results - Last 24 Hours (Table) 10/18/17 10/18/17 10/18/17 Range/Units 08:14 16:46 20:32 WBC (3.8-10.6) k/uL Neutrophils # (1.3-7.7) k/uL Potassium (3.5-5.1) mmol/L BUN (9-20) mg/dL Glucose (74-99) mg/dL POC Glucose (mg/dL) 152 H 186 H (75-99) mg/dL IgE 188.00 H (0.00-114.00) IU/mL 10/19/17 10/19/17 10/19/17 Range/Units 07:17 07:31 07:31 WBC 16.8 H (3.8-10.6) k/uL Neutrophils # 14.8 H (1.3-7.7) k/uL Potassium 5.6 H (3.5-5.1) mmol/L BUN 29 H (9-20) mg/dL Glucose 123 H (74-99) mg/dL POC Glucose (mg/dL) 123 H (75-99) mg/dL IgE (0.00-114.00) IU/mL 10/19/17 Range/Units 12:24 WBC (3.8-10.6) k/uL Neutrophils # (1.3-7.7) k/uL Potassium (3.5-5.1) mmol/L BUN (9-20) mg/dL Glucose (74-99) mg/dL POC Glucose (mg/dL) 103 H (75-99) mg/dL IgE (0.00-114.00) IU/mL Microbiology - Last 24 Hours (Table) 10/16/17 11:00 Gram Stain - Final Sputum Sputum Culture - Final Assessment and Plan Assessment: Acute asthma exacerbation purulent tracheobronchitis Developing COPD Severe morbid obesity and obesity hypoventilation Hypertension hypertensive cardiovascular disease Asplenia/status post a splenectomy and remote past Plan: Continue breathing treatments and IV steroids Follow up on sputum culture results and reports, final report reviewed Continue supportive care care plan discussed with the patient and family at length will follow Maintained patient on the IV Rocephin send labs for ALLERGIC asthma Scheduled for bronchoscopy and BAL for tomorrow, procedure explained to the patient and family Time with Patient: Greater than 30
[2017-10-19 17:16] LABS: Glucose,Whole Blood 125 mg/dL (75-99)
--- NOTE | 2017-10-19 18:14 | P.PN ---
Subjective Progress Note Date: 10/19/17 Personal being dictated for Dr. Salcedo Interval history: This a 47-year-old gentleman admitted with acute asthma exacerbation. Reports productive cough with minimal clear sputum production. Evaluated further by pulmonary and bronchoscopy scheduled for tomorrow. Potassium 5.6. Afebrile. Denies chest pain, palpitations. Objective - Vital Signs Vital signs: Vital Signs Temp 96.0 F L 10/19/17 15:00 Pulse 78 10/19/17 15:27 Resp 16 10/19/17 15:00 BP 163/87 10/19/17 15:00 Pulse Ox 92 L 10/19/17 15:00 Intake & Output 10/18/17 10/19/17 10/19/17 18:59 06:59 18:59 Intake Total 1200 Balance 1200 Intake: Oral 1200 Other: # Voids 3 2 2 - Exam PHYSICAL EXAM: VITAL SIGNS: As above GENERAL: Sitting up in bed, no acute distress HEENT: Conjunctivae normal. eyes normal. Oral mucosa moist NECK: No JVD. No thyroid enlargement. No LNs CARDIOVASCULAR: S1, S2 muffled. No murmur RESPIRATION: Breath sounds diminished in the bases. Scattered rhonchi and crackles. ABDOMEN: Soft, nontender . No guarding. no masses palpable. Bowel sounds heard. LEGS: No edema. no swelling PSYCHIATRY: Alert and oriented -3, mood and affect normal. NERVOUS SYSTEM: Cranial N 2-12 grossly normal. Moves all 4 limbs. Diffuse weakness No focal deficits. Skin: no ulcer no rash Joints: No active swelling. No inflammation. - Labs CBC & Chem 7: 10/19/17 07:31 10/19/17 07:31 Labs: Abnormal Lab Results - Last 24 Hours (Table) 10/18/17 10/18/17 10/19/17 Range/Units 08:14 20:32 07:17 WBC (3.8-10.6) k/uL Neutrophils # (1.3-7.7) k/uL Potassium (3.5-5.1) mmol/L BUN (9-20) mg/dL Glucose (74-99) mg/dL POC Glucose (mg/dL) 186 H 123 H (75-99) mg/dL IgE 188.00 H (0.00-114.00) IU/mL 10/19/17 10/19/17 10/19/17 Range/Units 07:31 07:31 12:24 WBC 16.8 H (3.8-10.6) k/uL Neutrophils # 14.8 H (1.3-7.7) k/uL Potassium 5.6 H (3.5-5.1) mmol/L BUN 29 H (9-20) mg/dL Glucose 123 H (74-99) mg/dL POC Glucose (mg/dL) 103 H (75-99) mg/dL IgE (0.00-114.00) IU/mL 10/19/17 Range/Units 16:51 WBC (3.8-10.6) k/uL Neutrophils # (1.3-7.7) k/uL Potassium (3.5-5.1) mmol/L BUN (9-20) mg/dL Glucose (74-99) mg/dL POC Glucose (mg/dL) 125 H (75-99) mg/dL IgE (0.00-114.00) IU/mL Assessment and Plan Assessment: 1. Acute bronchial asthma exacerbation with acute purulent tracheobronchitis 2. History of exposure to black mold 3. Leukocytosis, secondary to #1 4. Obesity, BMI 44.9 5. Hypertension 6. Hyperlipidemia 7. obstructive sleep apnea Plan: Continue on current nebulized bronchodilators, antibiotics, monitoring and symptomatic treatment. Kayexalate and low potassium diet ordered. Close monitoring of electrolytes and renal function with repeat labs ordered for a.m. Follow closely with pulmonary, bronchoscopy scheduled for tomorrow. Discharge planning in progress for possibly tomorrow after bronchoscopy. Further recommendations to follow. The impression and plan of care has been dictated as directed. : I performed a history and examination of this patient, discussed the same with the dictator. I agree with the dictator's note ,documented as a scribe. Any additional findings or plans will be noted.
[2017-10-19 20:51] LABS: Glucose,Whole Blood 196 mg/dL (75-99)
[2017-10-19] MEDS: MELATONIN 3 MG TABLET PO SCH (22:11)
[2017-10-19] MEDS: MONTELUKAST 10 MG TAB PO SCH (22:11)
[2017-10-20] MEDS ORDERED: LACTATED RINGERS 1,000 ML IV SCH (05:04)
[2017-10-20 07:26] LABS: Glucose,Whole Blood 118 mg/dL (75-99)
[2017-10-20] MEDS: INSULIN ASPART 100 UNIT/ML 1 ML 10 ML VIAL SQ SCH ×2 (07:27→12:39)
[2017-10-20 07:33] VITALS: RESP 20
[2017-10-20 08:45] LABS: Basophils % (A) 0 %; Eosinophils # (A) 0.1 k/uL (0-0.7); Eosinophils % (A) 0 %; HCT 49.2 % (39.0-53.0); HGB 15.4 gm/dL (13.0-17.5); Lymphocytes # (A) 1.1 k/uL (1.0-4.8); Lymphocytes % (A) 6 %; MCH 29.5 pg (25.0-35.0); MCHC 31.2 g/dL (31.0-37.0); MCV 94.5 fL (80.0-100.0); Mean Platelet Volume 7.1; Monocytes # (A) 0.8 k/uL (0-1.0); Monocytes % (A) 5 %; Neutrophils % (A) 88 %; Platelet Count 347 k/uL (150-450); RBC 5.21 m/uL (4.30-5.90); WBC 17.1 k/uL (3.8-10.6)
[2017-10-20] MEDS: SYMBICORT 160-4.5 MCG INHALER INHALATION SCH (08:58)
[2017-10-20] MEDS: ALBUTEROL NEBULIZED 2.5 MG/3 ML INHALATION SCH ×3 (08:58→15:01)
[2017-10-20] MEDS: ENOXAPARIN 40 MG/0.4 ML SYRINGE SQ SCH (09:12)
[2017-10-20 09:13] LABS: Anion Gap 12 mmol/L; Blood Urea Nitrogen 30 mg/dL (9-20); Calcium 9.6 mg/dL (8.4-10.2); Carbon Dioxide 27 mmol/L (22-30); Chloride 99 mmol/L (98-107); Glucose 116 mg/dL (74-99); Potassium 4.8 mmol/L (3.5-5.1); Sodium 138 mmol/L (137-145)
[2017-10-20] MEDS: cefTRIAXone IN SWFI 1,000 MG/10 ML SYRINGE IVP SCH (09:13)
[2017-10-20] MEDS: LISINOPRIL 20 MG TAB PO SCH (09:13)
[2017-10-20] MEDS: AZITHROMYCIN 500 MG TAB PO SCH (09:13)
[2017-10-20] MEDS: HYDROCHLOROTHIAZIDE 25 MG TAB PO SCH (09:13)
[2017-10-20] MEDS: methylPREDNISolone SOD SUCCI 40 MG/ML 1 ML VIAL IV SCH ×2 (09:13→15:44)
[2017-10-20] MEDS: ATORVASTATIN 20 MG TAB PO SCH (09:13)
[2017-10-20] MEDS: SERTRALINE 100 MG TAB PO SCH (09:13)
[2017-10-20] MEDS ORDERED: MIDAZOLAM 2 MG/2 ML VIAL ONE (12:29)
[2017-10-20] MEDS ORDERED: PROPOFOL 10 MG/ML 20 ML VIAL IV ONE (12:29)
[2017-10-20] MEDS ORDERED: IV FLUID CONTINUATION 1,000 ML IV ONE (12:29)
[2017-10-20] MEDS ORDERED: KETAMINE 10 MG/ML 20 ML VIAL ONE (12:29)
[2017-10-20 12:32] LABS: Glucose,Whole Blood 127 mg/dL (75-99)
[2017-10-20] MEDS ORDERED: LIDOCAINE 2% INJ 20 MG/ML INTRATRACH ONE (12:57)
--- NOTE | 2017-10-20 14:20 | P.PN ---
Subjective Progress Note Date: 10/20/17 Principal diagnosis: Acute asthma exacerbation, tracheobronchitis purulent, severe morbid obesity obstructive sleep apnea, ALLERGIC asthma and ALLERGIC tracheobronchitis, hypertension and hypertensive cardiovascular disease 10/20/2017, patient seen eval reexamined during the rounds cuff congestion shortness of breath and wheezing still there was severity has improved given problems associated recurrent pneumonia and tracheobronchitis patient is scheduled for bronchoscopy to look into infection related to unusual bacterial or resistant organism also has history of the mold exposure 10/19/2017, patient seen eval reexamined during the rounds care plan discussed with the patient patient and the mother present at bedside as well as as well as the RN clinically slightly better with wheezing cough congestion is improved but still feel thick tenacious secretions patient is being scheduled for bronchoscopy and bronchoalveolar lavage and possible biopsies any significant pathology in the airways have been noted he is tentatively being scheduled for a tomorrow procedure explained to the patient and family at length risk complication and alternative also explained 10/18/2017, patient seen eval examined during the rounds clinically overall not much change cough congestion shortness of breath is still there gets wheezing however does respond well with the breathing treatments and antibiotics 10/17/2017, patient seen eval examined during the rounds still have cough sputum is more purulent now sputum findings in Gram stain reviewed it appears to be mixed bacteria with no significant predominance is seen nightly color appearances history of the splenectomy in the past consider starting IV Rocephin with continuation of current therapeutic intervention, patient has significant exposure to molds with that we will check ALLERGY panel, patient will benefit from bronchoscopy will schedule sometime next week with further recommendations pending care plan discussed with patient and significant other at length 10/16/2017, patient seen eval examined during the round still very short of breath cough congestion is present patient is now producing purulent sputum6 pain and culture patient remains on IV steroids and breathing treatments, , tolerating well chest x-ray and CAT scan failed to reveal any new pneumonia like findings will monitor patient off of antibiotics for now more test results are available 47-year-old male who presented with 3 days of increasing shortness of breath cough some brown sputum, no fever no chills diagnosed last time he was admitted with late onset asthma. Positive home test for sleep apnea. Did try the CPAP but didn't help much. Patient's weight is 158 kg and is brought about 20 pounds over the last year. Put on bronchodilators and steroids in the ER and he feels better. 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 Admitted with acute exacerbation of mild persistent asthma. Objective - Vital Signs Vital signs: Vital Signs Temp 97.1 F L 10/20/17 10:12 Pulse 65 10/20/17 10:12 Resp 20 10/20/17 10:12 BP 139/84 10/20/17 10:12 Pulse Ox 90 L 10/20/17 10:12 Intake & Output 10/19/17 10/20/17 10/20/17 18:59 06:59 18:59 Intake Total 250 Balance 250 Intake: IV 250 Other: Voiding Method Toilet # Voids 2 1 2 - Exam GENERAL APPEARANCE: Lying in bed, mild respiratory distress. HENT: Normocephalic, JVD not raised. Mass not palpable. Oral cavity normal, narrow oropharyngeal opening external appearance of ears and nose normal. EYES:Pupils equal. Conjunctiva normal. RESPIRATORY: Respiratory effort increased Lungs diminished bilaterally to auscultation, inspiratory expiratory wheezing and rhonchi present CARDIOVASCULAR: First and second sounds normal. No edema. ABDOMEN: Very obese Liver and spleen not palpable. No tenderness. No mass palpable. PSYCHIATRY: Alert and oriented x3. Mood and affect normal. 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 - Labs CBC & Chem 7: 10/20/17 08:04 10/20/17 08:04 Labs: Abnormal Lab Results - Last 24 Hours (Table) 10/19/17 10/19/17 10/20/17 Range/Units 16:51 20:48 07:21 WBC (3.8-10.6) k/uL Neutrophils # (1.3-7.7) k/uL BUN (9-20) mg/dL Glucose (74-99) mg/dL POC Glucose (mg/dL) 125 H 196 H 118 H (75-99) mg/dL 10/20/17 10/20/17 10/20/17 Range/Units 08:04 08:04 12:22 WBC 17.1 H (3.8-10.6) k/uL Neutrophils # 15.0 H (1.3-7.7) k/uL BUN 30 H (9-20) mg/dL Glucose 116 H (74-99) mg/dL POC Glucose (mg/dL) 127 H (75-99) mg/dL Assessment and Plan Assessment: Acute asthma exacerbation purulent tracheobronchitis Developing COPD Severe morbid obesity and obesity hypoventilation Hypertension hypertensive cardiovascular disease Asplenia/status post a splenectomy and remote past Plan: Continue breathing treatments and IV steroids Follow up on sputum culture results and reports, final report reviewed Continue supportive care care plan discussed with the patient and family at length will follow Maintained patient on the IV Rocephin send labs for ALLERGIC asthma Scheduled for bronchoscopy and BAL procedure explained to the patient and family Time with Patient: Greater than 30
--- NOTE | 2017-10-20 14:22 | P.PCN ---
Date of Procedure: 10/20/17 Preoperative Diagnosis: Recurrent pneumonia Postoperative Diagnosis: As above Procedure(s) Performed: Bronchoscopy and bronchoalveolar lavage of right upper lobe right lower lobe and left lower lobe Anesthesia: other Surgeon: Ralf Rae Estimated Blood Loss (ml): 0 Condition: stable Disposition: floor Indications for Procedure: Non-resolving recurrent pneumonia Operative Findings: Normal vocal cords, tip of the scope was has beyond the vocal cords diffuse right heme edema of tracheobronchial tree bilaterally was noted, scattered mucous plugs were seen which was suctioned and cleaned, BAL was performed from the right upper lobe right lower lobe and left lower lobe tolerated well Description of Procedure: As above
[2017-10-20 15:51] VITALS: BP 132/73; PULSE 93; TEMP 97
--- NOTE | 2017-10-20 22:18 | DS ---
DISCHARGE SUMMARY FINAL DIAGNOSES: 1. Acute bronchial asthma acute exacerbation, acute purulent tracheobronchitis, status post bronchoscopy and history of exposure to black mold. 2. Leukocytosis. 3. Obesity with body mass index of 44.9. 4. Hypertension. 5. Hyperlipidemia. 6. Obstructive sleep apnea. DISCHARGE DISPOSITION: The patient will be discharged in stable condition with guarded prognosis. HISTORY OF PRESENT ILLNESS: This 47-year-old gentleman who presented with multiple medical was admitted with bronchial asthma acute exacerbation, was treated with bronchodilators, steroids. Dr. Rae saw the patient. Bronchoscopy was performed. Final reports are pending at this time. EXAM: Vitals are stable. CARDIOVASCULAR: S1, S2 muffled. RESPIRATORY: A few rhonchi. ABDOMEN: Soft, nontender. NERVOUS SYSTEM: No focal deficits. DISCHARGED ADVICE AND MEDICATIONS: 1. Diet is cardiac. 2. Activity limited until followup. 3. Follow up with Dr. Mueller in 2-3 days. 4. Followup with Dr. Voss as advised. MEDICATIONS: Will be: 1. Ventolin 2 puffs every 6 hours p.r.n. 2. Albuterol nebulizer 2.5 q.i.d. and p.r.n. 3. Lipitor 20 mg p.o. daily. 4. Symbicort 160/4.5, 2 puffs b.i.d. 5. Ceftin 500 mg p.o. b.i.d. for 1 week. 6. Hydrochlorothiazide 25 mg p.o. daily. 7. Zestril 20 mg p.o. daily. 8. Medrol Dosepak as directed. 9. Singular 10 mg q.h.s. 10.Zoloft 100 mg p.o. daily. Once again, the patient will be discharged in stable condition with a guarded prognosis. MMODL / IJN: [id number] /
[2017-10-25 20:46] LABS: Alternaria Alternata IgG 2.8 mcg/mL (< 13.6); Aspergillus fumigatus IgG Not detected (Not detected); Aureobasidium pullulans IgG 5.3 mcg/mL (< 13.6); Cladosporium herbarium IgG 11.4 mcg/mL (< 14.7); Phoma ssp. IgG 5.6 mcg/mL (< 6.6); Saccaharomospora viridis Not detected (Not detected); Saccaharopoly. rectivirgula Not detected (Not detected)
== END 2017-10-20 17:01 | disposition home or self-care (01) | DRG 167 ==
LOC: EC 04:46 → 4MS4W 06:43 → OBSVTOIN 10-17 15:39
PROVIDERS: ADMIT Hospitalist; ATTEND Hospitalist
PROC: 0B9F8ZX Drainage of Right Lower Lung Lobe, Via Natural or Artificial Opening Endoscopic, Diagnostic (ICD-10-PCS; 2017-10-20)
PROC: 0B9J8ZX Drainage of Left Lower Lung Lobe, Via Natural or Artificial Opening Endoscopic, Diagnostic (ICD-10-PCS; principal; 2017-10-20 12:30)
PROC: 0B9C8ZX Drainage of Right Upper Lung Lobe, Via Natural or Artificial Opening Endoscopic, Diagnostic (ICD-10-PCS; 2017-10-20 12:30)
DX: J45.51 Severe persistent asthma with (acute) exacerbation (principal); J44.0 Chronic obstructive pulmonary disease with (acute) lower respiratory infection; T17.890A Other foreign object in other parts of respiratory tract causing asphyxiation, initial encounter; E66.2 Morbid (severe) obesity with alveolar hypoventilation; I11.9 Hypertensive heart disease without heart failure; Z68.41 Body mass index [BMI] 40.0-44.9, adult; J20.9 Acute bronchitis, unspecified; E78.5 Hyperlipidemia, unspecified; F32.9 Major depressive disorder, single episode, unspecified; T38.0X5A Adverse effect of glucocorticoids and synthetic analogues, initial encounter; R73.9 Hyperglycemia, unspecified; Z77.120 Contact with and (suspected) exposure to mold (toxic); Z79.899 Other long term (current) drug therapy; Z90.81 Acquired absence of spleen; Z87.01 Personal history of pneumonia (recurrent); Z71.89 Other specified counseling; Z82.49 Family history of ischemic heart disease and other diseases of the circulatory system
CPT/HCPCS: 31624; 31645; 36415; 71046; 71275; 80048; 80053; 82550; 82553; 82785; 83880; 84484; 85025; 85379; 85610; 85730; 86001; 86606; 86609; 87070; 87102; 87116; 87205; 87206; 87252; 87299; 87496; 87498; 87502; 87529; 87541; 87634; 87798; 88108; 88305; 93005; 93306; 94640; 94760; 96374; 99285

== ENCOUNTER 2018-03-15 01:58 | Emergency (ER) | payer OTHER ==
[2018-03-15] MEDS ORDERED: DIPH,PERTUS(ACELL)TETVAC-LF 0.5 ML VIAL IM ONE (02:02)
[2018-03-15] MEDS ORDERED: ceFAZolin 1,000 MG in DEXTROSE/WATER 1 50ML.BAG IVPB STA (02:02)
[2018-03-15] MEDS ORDERED: SODIUM CHLORIDE 0.9% 1,000 ML IV ONE (02:06)
[2018-03-15 02:10] VITALS: BP 226/108; PULSE 104; RESP 20; TEMP 97.8
[2018-03-15 02:11] LABS: Glucose,Whole Blood 191 mg/dL (75-99)
[2018-03-15] MEDS ORDERED: SODIUM CHLORIDE 0.9% 1,000 ML IV SCH (02:15)
[2018-03-15] MEDS ORDERED: MORPHINE SULFATE 4 MG/ML SYRINGE IV STA (02:16)
[2018-03-15 02:39] LABS: Basophils # (A) 0.1 k/uL (0-0.2); Basophils % (A) 0 %; Eosinophils # (A) 0.4 k/uL (0-0.7); Eosinophils % (A) 4 %; HCT 45.7 % (39.0-53.0); HGB 15.2 gm/dL (13.0-17.5); Lymphocytes # (A) 3.9 k/uL (1.0-4.8); Lymphocytes % (A) 31 %; MCH 30.4 pg (25.0-35.0); MCHC 33.4 g/dL (31.0-37.0); MCV 91.2 fL (80.0-100.0); Mean Platelet Volume 7.7; Monocytes # (A) 0.7 k/uL (0-1.0); Monocytes % (A) 6 %; Neutrophils # (A) 7.3 k/uL (1.3-7.7); Neutrophils % (A) 58 %; Platelet Count 337 k/uL (150-450); RBC 5.01 m/uL (4.30-5.90); RDW 14.4 % (11.5-15.5); WBC 12.7 k/uL (3.8-10.6)
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
[2018-03-15 02:44] LABS: ALT 40 U/L (21-72); AST 36 U/L (17-59); Albumin 4.1 g/dL (3.5-5.0); Alcohol <10 mg/dL; Alkaline Phosphatase 61 U/L (38-126); Amylase 47 U/L (30-110); Anion Gap 8 mmol/L; Blood Urea Nitrogen 28 mg/dL (9-20); Calcium 9.9 mg/dL (8.4-10.2); Carbon Dioxide 24 mmol/L (22-30); Chloride 108 mmol/L (98-107); Glucose 199 mg/dL (74-99); Lipase 120 U/L (23-300); Potassium 4.6 mmol/L (3.5-5.1); Sodium 140 mmol/L (137-145); Total Bilirubin 0.6 mg/dL (0.2-1.3); Total Protein 6.6 g/dL (6.3-8.2)
[2018-03-15 02:49] LABS: Prothrombin Time 9.7 sec (9.0-12.0)
[2018-03-15 02:50] LABS: Partial Thromboplastin Time 21.1 sec (22.0-30.0)
[2018-03-15 02:57] LABS: Creatine Kinase 190 U/L (55-170)
[2018-03-15 03:09] LABS: Creatine Kinase MB 0.8 ng/mL (0.0-2.4); Troponin I <0.012 ng/mL (0.000-0.034)
== END 2018-03-15 03:10 | disposition other institution (70) ==
LOC: EC 01:58
DX: T20.20XA Burn of second degree of head, face, and neck, unspecified site, initial encounter (principal); T21.20XA Burn of second degree of trunk, unspecified site, initial encounter; T21.21XA Burn of second degree of chest wall, initial encounter; T21.24XA Burn of second degree of lower back, initial encounter; T22.20XA Burn of second degree of shoulder and upper limb, except wrist and hand, unspecified site, initial encounter; T22.232A Burn of second degree of left upper arm, initial encounter; T23.201A Burn of second degree of right hand, unspecified site, initial encounter; T31.22 Burns involving 20-29% of body surface with 20-29% third degree burns; I10 Essential (primary) hypertension; E78.5 Hyperlipidemia, unspecified; F32.9 Major depressive disorder, single episode, unspecified; Z23 Encounter for immunization; Z79.899 Other long term (current) drug therapy; W40.1XXA Explosion of explosive gases, initial encounter; Y92.89 Other specified places as the place of occurrence of the external cause
CPT/HCPCS: 99291; 96365; 96375; 90471; 36415; 86900; 86901; 80053; 82150; 82550; 82553; 83605; 83690; 84484; 85025; 85610; 85730; 86850; 80320; 71045; 90715; J2270; J0690

== ENCOUNTER → 2022-05-06 | Outpatient (CLI) | payer OTHER | END | disposition home or self-care (01) | LOC: LABWHC1 21:28 | PROVIDERS: ATTEND Family Medicine | DX: Z53.9 Procedure and treatment not carried out, unspecified reason (principal) ==

== ENCOUNTER 2022-07-21 10:20 | Emergency (ER) | payer OTHER ==
[2022-07-21 10:38] VITALS: TEMP 98.2
[2022-07-21] MEDS ORDERED: DEXAMETHASONE SOD PHOSPHATE 10 MG/ML 1 ML VIAL IM STA (10:46)
[2022-07-21] MEDS ORDERED: IPRATROPIUM-ALBUTEROL 3 ML NEB INHALATION STA (10:46)
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
[2022-07-21] MEDS ORDERED: ALBUTEROL NEBULIZED 2.5 MG/3 ML INHALATION STA (10:54)
--- NOTE | 2022-07-21 11:21 | XR ---
EXAMINATION TYPE: XR chest 2V DATE OF EXAM: 07/21/2022 COMPARISON: 03/15/2018 HISTORY: Chest pain TECHNIQUE: Frontal and lateral views of the chest are obtained. FINDINGS: There is no focal air space opacity. No evidence for pneumothorax. No pleural effusion. The cardiac silhouette size is within normal limits. The osseous structures are grossly intact. IMPRESSION: 1. No acute cardiopulmonary process.
[2022-07-21 12:41] VITALS: BP 150/70; PULSE 76; RESP 18
== END 2022-07-21 12:42 | disposition home or self-care (01) ==
LOC: EC 10:20
DX: J45.909 Unspecified asthma, uncomplicated (principal); I10 Essential (primary) hypertension; E78.5 Hyperlipidemia, unspecified; F32.A Depression, unspecified; Z79.83 Long term (current) use of bisphosphonates; Z79.899 Other long term (current) drug therapy
CPT/HCPCS: 71046; 99284; 96372; J1100

== ENCOUNTER 2022-09-07 13:18 | Inpatient (IN) | payer OTHER ==
--- NOTE | 2022-09-07 13:32 | ED ---
SOB HPI - General Source: patient, RN notes reviewed Mode of arrival: ambulatory Limitations: no limitations <Hasmukh Quach - Last Filed: 09/07/22 13:30> <Walker Jamison - Last Filed: 09/07/22 15:54> <Cara Faith - Last Filed: 09/14/22 23:17> - General Chief Complaint: Shortness of Breath Stated Complaint: sob Time Seen by Provider: 09/07/22 13:25 - History of Present Illness Initial Comments: 52-year-old male presents emergency Department with chief complaint shortness of breath. Patient's been having increasing shortness breath he states he's been told that he has asthma. Patient states that over the last 2 months he's had recurrent issues. Patient states that he occasionally has productive cough is noticed himself wheezing, worsening shortness breath with exertion. Patient does have a history of hypertension. Denies chest pain but states is tightness. Patient denies nausea vomiting no leg pain or leg swelling no history of CHF. (Hasmukh Quach) - Related Data Home Medications Medication Instructions Recorded Confirmed Atorvastatin [Lipitor] 20 mg PO HS@2200 08/21/17 09/07/22 hydroCHLOROthiazide 25 mg PO HS@2200 08/21/17 09/07/22 lisinopriL [Zestril] 20 mg PO HS@2200 08/21/17 09/07/22 FLUoxetine HCL [PROzac] 20 mg PO HS@2200 07/21/22 09/07/22 Previous Rx's Medication Instructions Recorded Albuterol Sulfate [Albuterol 1 puff PO Q4-6H #8.5 gm 09/11/22 Sulfate Hfa] cefUROXime axetiL [Ceftin] 500 mg PO BID #6 tab 09/11/22 predniSONE 10 mg PO DAILY #30 tab 09/11/22 Allergies Allergy/AdvReac Type Severity Reaction Status Date / Time No Known Allergies Allergy Verified 07/21/22 10:37 Review of Systems ROS Other: All systems not noted in ROS Statement are negative. <Hasmukh Quach - Last Filed: 09/07/22 13:30> ROS Other: All systems not noted in ROS Statement are negative. <Walker Jamison - Last Filed: 09/07/22 15:54> ROS Other: All systems not noted in ROS Statement are negative. <Cara Faith - Last Filed: 09/14/22 23:17> ROS Statement: Those systems with pertinent positive or pertinent negative responses have been documented in the HPI. Past Medical History Past Medical History: Asthma, Hyperlipidemia, Hypertension, Sleep Apnea/CPAP/BIPAP Additional Past Medical History / Comment(s): Bronchitis, STEPHEN being worked up, black mold exposure at work per pt. 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 Past Anesthesia/Blood Transfusion Reactions: No Reported Reaction Past Psychological History: Depression Smoking Status: Never smoker Past Alcohol Use History: None Reported Past Drug Use History: None Reported - Past Family History Mother Additional Family Medical History / Comment(s): "She's alive." Father Family Medical History: Cancer, Coronary Artery Disease (CAD) Additional Family Medical History / Comment(s): Father had cancer which pt thin ks was colon cancer. <Hasmukh Quach - Last Filed: 09/07/22 13:30> General Exam Limitations: no limitations <Hasmukh Quach - Last Filed: 09/07/22 13:30> General appearance: alert, in no apparent distress Head exam: Present: atraumatic, normocephalic, normal inspection Eye exam: Present: normal appearance, PERRL, EOMI. Absent: scleral icterus, conjunctival injection, periorbital swelling ENT exam: Present: normal exam, mucous membranes moist Neck exam: Present: normal inspection. Absent: tenderness, meningismus, lymphadenopathy Respiratory exam: Present: wheezes, accessory muscle use. Absent: respiratory distress, rales, rhonchi, stridor Cardiovascular Exam: Present: regular rate, normal rhythm, normal heart sounds. Absent: systolic murmur, diastolic murmur, rubs, gallop, clicks GI/Abdominal exam: Present: soft, normal bowel sounds. Absent: distended, tenderness, guarding, rebound, rigid Extremities exam: Present: normal inspection, full ROM, normal capillary refill. Absent: tenderness, pedal edema, joint swelling, calf tenderness Back exam: Present: normal inspection Neurological exam: Present: alert, oriented X3, CN II-XII intact Psychiatric exam: Present: normal affect, normal mood Skin exam: Present: warm, dry, intact, normal color. Absent: rash <Benita Faithah Benitez - Last Filed: 09/14/22 23:17> Course Vital Signs 09/07/22 09/07/22 09/07/22 13:26 15:02 16:43 Temperature 97.7 F Pulse Rate 83 65 74 Respiratory 24 20 Rate Blood Pressure 225/70 133/81 O2 Sat by Pulse 98 96 Oximetry 09/07/22 09/07/22 09/07/22 16:59 17:17 17:48 Temperature Pulse Rate 74 79 Respiratory 16 Rate Blood Pressure 142/99 O2 Sat by Pulse 94 L 92 L Oximetry Medical Decision Making - Lab Data Result diagrams: 09/07/22 14:26 09/07/22 14:26 <Walker Jamison - Last Filed: 09/07/22 15:54> - Lab Data Result diagrams: 09/07/22 14:26 09/07/22 14:26 <Cara Faith - Last Filed: 09/14/22 23:17> - Medical Decision Making EKG was interpreted by myself. EKG shows sinus rhythm at 67 bpm [place] interval is on a 65 care is a C5 QT interval 372 QTC is 37. Patient's EKG shows no ST segment elevation or depression. Was pt. sent in by a medical professional or institution (SHERRY Coker, CONTENT DIRECTOR, urgent care, hospital, or residential...) When possible be specific @ -[No] Did you speak to anyone other than the patient for history (EMS, parent, family, police, friend...)? What history was obtained from this source @ -[No] Did you review nursing and triage notes (agree or disagree)? Why? @ -[I reviewed and agree with nursing and triage notes] Were old charts reviewed (outside hosp., previous admission, EMS record, old EKG, old radiological studies, urgent care reports/EKG's, residential records)? Report findings @ -No old charts were reviewed Differential Diagnosis (chest pain, altered mental status, abdominal pain women, abdominal pain men, vaginal bleeding, weakness, fever, dyspnea, syncope, headach e, dizziness, GI bleed, back pain, seizure, CVA, palpatations, mental health)? @ -Differential Dyspnea: Coronary syndrome, arrhythmia, tamponade, asthma, COPD, pulmonary embolism, pneumonia, pneumothorax, pulmonary effusion, anaphylaxis, diabetic ketoacidosis, flailed chest, pulmonary contusion, diaphragmatic rupture, anemia, neuromuscular, this is not meant to be an all-inclusive list. EKG interpreted by me (3pts min.). @ -[As above] X-rays interpreted by me (1pt min.). @ -Chest x-ray is interpreted by me. Chest x-ray shows infiltrate bilaterally CT interpreted by me (1pt min.). @ -[None done] U/S interpreted by me (1pt. min.). @ -[None done] What testing was considered but not performed or refused? (CT, X-rays, U/S, labs)? Why? @ -[None] What meds were considered but not given or refused? Why? @ -[None] Did you discuss the management of the patient with other professionals (professionals i.e. , PA, CONTENT DIRECTOR, lab, RT, psych nurse, social media content specialist, electrical designer, teacher, officer lieutenant, correctional case manager)? Give summary @ -[No] Was smoking cessation discussed for >3mins.? @ -[No] Was critical care preformed (if so, how long)? @ -[No] Were there social determinants of health that impacted care today? How? (Homelessness, low income, unemployed, alcoholism, drug addiction, transportation, low edu. Level, literacy, decrease access to med. care, penitentiary, rehab)? @ -[No] Was there de-escalation of care discussed even if they declined (Discuss DNR or withdrawal of care, Hospice)? DNR status @ -[No] What co-morbidities impacted this encounter? (DM, HTN, Smoking, COPD, CAD, Cancer, CVA, ARF, Chemo, Hep., AIDS, mental health diagnosis, sleep apnea, morbid obesity)? @ -[None] Was patient admitted / discharged? Hospital course, mention meds given and route, prescriptions, significant lab abnormalities, going to OR and other pertinent info. @ -Patient was given breathing treatments as well as steroids. Dr. Faith will be taking over the care of this patient at or p.m. (Walker Jamison) Was patient admitted / discharged? @ -Upon arrival patient was treated in room 19. I did assume care for this patient at the beginning of my shift. He did receive his breathing treatment. I reviewed the patient's laboratory studies which are within normal limits. Influenza, RSV ankle that are negative. Chest x-ray demonstrates multifocal pneumonia. He is an asthmatic with history of splenectomy. Did recommend admission for antibiotics. Called and spoke with Dr. ramirez was agreeable to admit the patient. Placed on Rocephin and azithromycin. Pro-calcitonin is ordered. Patient taken to the floor in stable condition Undiagnosed new problem with uncertain prognosis? yes Drug Therapy requiring intensive monitoring for toxicity (Heparin, Nitro, Insulin, Cardizem)? no Were any procedures done? no Diagnosis/symptom? community acquire pna Acute, or Chronic, or Acute on Chronic? acute Uncomplicated (without systemic symptoms) or Complicated (systemic symptoms)? complicated Side effects of treatment? none Exacerbation, Progression, or Severe Exacerbation] no Poses a threat to life or bodily function? yes (Cara Faith) - Lab Data Lab Results 09/07/22 09/07/22 09/07/22 Range/Units 14:18 14:26 14:26 WBC 8.3 (3.8-10.6) k/uL RBC 4.69 (4.30-5.90) m/uL Hgb 14.5 (13.0-17.5) gm/dL Hct 43.3 (39.0-53.0) % MCV 92.3 (80.0-100.0) fL MCH 30.9 (25.0-35.0) pg MCHC 33.5 (31.0-37.0) g/dL RDW 13.4 (11.5-15.5) % Plt Count 283 (150-450) k/uL MPV 9.4 Neutrophils % 55 % Lymphocytes % 26 % Monocytes % 6 % Eosinophils % 11 % Basophils % 1 % Neutrophils # 4.6 (1.3-7.7) k/uL Lymphocytes # 2.1 (1.0-4.8) k/uL Monocytes # 0.5 (0-1.0) k/uL Eosinophils # 0.9 H (0-0.7) k/uL Basophils # 0.1 (0-0.2) k/uL PT 9.6 (9.0-12.0) sec INR 0.9 (<1.2) APTT 22.5 (22.0-30.0) sec Sodium (137-145) mmol/L Potassium (3.5-5.1) mmol/L Chloride (98-107) mmol/L Carbon Dioxide (22-30) mmol/L Anion Gap mmol/L BUN (9-20) mg/dL Creatinine (0.66-1.25) mg/dL Est GFR (CKD-EPI)AfAm (>60 ml/min/1.73 sqM) Est GFR (CKD-EPI)NonAf (>60 ml/min/1.73 sqM) Glucose (74-99) mg/dL Plasma Lactic Acid Dante (0.7-2.0) mmol/L Calcium (8.4-10.2) mg/dL Magnesium (1.6-2.3) mg/dL Total Bilirubin (0.2-1.3) mg/dL AST (17-59) U/L ALT (4-49) U/L Alkaline Phosphatase (38-126) U/L Troponin I (0.000-0.034) ng/mL Total Protein (6.3-8.2) g/dL Albumin (3.5-5.0) g/dL Influenza Type A (PCR) Not Detected (Not Detectd) Influenza Type B (PCR) Not Detected (Not Detectd) RSV (PCR) Not Detected (Not Detectd) SARS-CoV-2 (PCR) Not Detected (Not Detectd) 09/07/22 09/07/22 09/07/22 Range/Units 14:26 14:26 14:26 WBC (3.8-10.6) k/uL RBC (4.30-5.90) m/uL Hgb (13.0-17.5) gm/dL Hct (39.0-53.0) % MCV (80.0-100.0) fL MCH (25.0-35.0) pg MCHC (31.0-37.0) g/dL RDW (11.5-15.5) % Plt Count (150-450) k/uL MPV Neutrophils % % Lymphocytes % % Monocytes % % Eosinophils % % Basophils % % Neutrophils # (1.3-7.7) k/uL Lymphocytes # (1.0-4.8) k/uL Monocytes # (0-1.0) k/uL Eosinophils # (0-0.7) k/uL Basophils # (0-0.2) k/uL PT (9.0-12.0) sec INR (<1.2) APTT (22.0-30.0) sec Sodium 138 (137-145) mmol/L Potassium 4.8 (3.5-5.1) mmol/L Chloride 104 (98-107) mmol/L Carbon Dioxide 29 (22-30) mmol/L Anion Gap 5 mmol/L BUN 18 (9-20) mg/dL Creatinine 0.93 (0.66-1.25) mg/dL Est GFR (CKD-EPI)AfAm >90 (>60 ml/min/1.73 sqM) Est GFR (CKD-EPI)NonAf >90 (>60 ml/min/1.73 sqM) Glucose 104 H (74-99) mg/dL Plasma Lactic Acid Dante 1.4 (0.7-2.0) mmol/L Calcium 9.2 (8.4-10.2) mg/dL Magnesium 2.0 (1.6-2.3) mg/dL Total Bilirubin 1.1 (0.2-1.3) mg/dL AST 30 (17-59) U/L ALT 27 (4-49) U/L Alkaline Phosphatase 59 (38-126) U/L Troponin I <0.012 (0.000-0.034) ng/mL Total Protein 6.8 (6.3-8.2) g/dL Albumin 4.1 (3.5-5.0) g/dL Influenza Type A (PCR) (Not Detectd) Influenza Type B (PCR) (Not Detectd) RSV (PCR) (Not Detectd) SARS-CoV-2 (PCR) (Not Detectd) Disposition <Hasmukh Quach - Last Filed: 09/07/22 13:30> <Walker Jamison - Last Filed: 09/07/22 15:54> Is patient prescribed a controlled substance at d/c from ED?: No Time of Disposition: 17:17 Decision to Admit Reason: Admit from EC Decision Date: 09/07/22 Decision Time: 17:17 <Cara Faith - Last Filed: 09/14/22 23:17> Clinical Impression: Community acquired pneumonia, Dyspnea, Asthma exacerbation, Asplenia Disposition: ADMITTED IP TO THIS HOSP Condition: Stable
[2022-09-07] MEDS ORDERED: methylPREDNISolone SOD SUCCI 125 MG/2 ML VIAL IV STA (13:52)
[2022-09-07] MEDS ORDERED: ALBUTEROL NEBULIZED 2.5 MG/3 ML INHALATION STA (13:52)
[2022-09-07] MEDS ORDERED: IPRATROPIUM 0.5 MG/2.5 ML NEBU INHALATION STA (13:52)
--- NOTE | 2022-09-07 14:06 | XR ---
EXAMINATION TYPE: XR chest 2V DATE OF EXAM: 09/07/2022 1:57 PM COMPARISON: Chest x-ray 07/21/2022, chest x-ray 03/15/2018 TECHNIQUE: XR chest 2V . CLINICAL INDICATION:Male, 52 years old with history of difficulty breathing; FINDINGS: Lungs/Pleura: Streaky airspace opacities within the left lower lobe and hazy fullness of the left per ihilar region. Streaky right lower lobe airspace opacities, less pronounced than the contralateral si de. No pneumothorax or pleural effusion. Pulmonary vascularity: Unremarkable. Heart/mediastinum: Cardiomediastinal silhouette is unremarkable. Musculoskeletal: No acute osseous pathology. Degenerative changes of the thoracic spine. IMPRESSION: Multifocal airspace opacities concerning for pneumonia.
[2022-09-07] MEDS: hydrALAZINE HCL 20 MG/ML 1 ML VIAL IVP STA ×2 (15:01→15:07)
[2022-09-07 15:15] LABS: Basophils # (A) 0.1 k/uL (0-0.2); Basophils % (A) 1 %; Eosinophils # (A) 0.9 k/uL (0-0.7); Eosinophils % (A) 11 %; HCT 43.3 % (39.0-53.0); HGB 14.5 gm/dL (13.0-17.5); Lymphocytes # (A) 2.1 k/uL (1.0-4.8); Lymphocytes % (A) 26 %; MCH 30.9 pg (25.0-35.0); MCHC 33.5 g/dL (31.0-37.0); MCV 92.3 fL (80.0-100.0); Mean Platelet Volume 9.4; Monocytes # (A) 0.5 k/uL (0-1.0); Monocytes % (A) 6 %; Neutrophils # (A) 4.6 k/uL (1.3-7.7); Neutrophils % (A) 55 %; Platelet Count 283 k/uL (150-450); RBC 4.69 m/uL (4.30-5.90); RDW 13.4 % (11.5-15.5); WBC 8.3 k/uL (3.8-10.6)
[2022-09-07 15:20] LABS: ALT 27 U/L (4-49); AST 30 U/L (17-59); African American GFR (CKD) >90 (>60 ml/min/1.73 sqM); Albumin 4.1 g/dL (3.5-5.0); Alkaline Phosphatase 59 U/L (38-126); Anion Gap 5 mmol/L; Blood Urea Nitrogen 18 mg/dL (9-20); Calcium 9.2 mg/dL (8.4-10.2); Carbon Dioxide 29 mmol/L (22-30); Chloride 104 mmol/L (98-107); Glucose 104 mg/dL (74-99); Non-African American GFR(CKD) >90 (>60 ml/min/1.73 sqM); Potassium 4.8 mmol/L (3.5-5.1); Sodium 138 mmol/L (137-145); Total Bilirubin 1.1 mg/dL (0.2-1.3); Total Protein 6.8 g/dL (6.3-8.2)
[2022-09-07 15:25] LABS: INR 0.9 (<1.2); Partial Thromboplastin Time 22.5 sec (22.0-30.0); Prothrombin Time 9.6 sec (9.0-12.0)
[2022-09-07] MEDS ORDERED: AZITHROMYCIN 500 MG in SODIUM CHLORIDE 0.9% 250 ML IVPB STA (17:13)
[2022-09-07] MEDS ORDERED: cefTRIAXone IN SWFI 1,000 MG/10 ML SYRINGE IVP STA (17:13)
[2022-09-07] MEDS ORDERED: PNEUMONIA PROTOCOL UTILIZED 1 EACH MISC PO PRN (17:17)
[2022-09-07] MEDS: SODIUM CHLORIDE 0.9% 1,000 ML IV SCH (17:45)
[2022-09-07] MEDS ORDERED: IPRATROPIUM-ALBUTEROL 3 ML NEB INHALATION SCH (20:00)
[2022-09-07] MEDS ORDERED: IPRATROPIUM-ALBUTEROL 3 ML NEB INHALATION PRN (20:35)
[2022-09-07] MEDS: FLUoxetine HCL 20 MG CAP PO SCH (21:43)
[2022-09-07] MEDS: hydroCHLOROthiazide 25 MG TAB PO SCH (21:43)
[2022-09-07] MEDS: ATORVASTATIN 20 MG TAB PO SCH (21:43)
[2022-09-07] MEDS: lisinopriL 20 MG TAB PO SCH (21:43)
[2022-09-08] MEDS: methylPREDNISolone SOD SUCCI 40 MG/ML 1 ML VIAL IV SCH ×3 (00:25→16:48)
[2022-09-08] MEDS: SODIUM CHLORIDE 0.9% 1,000 ML IV SCH ×3 (06:04→17:52)
--- NOTE | 2022-09-08 07:31 | XR ---
EXAMINATION TYPE: XR chest 2V DATE OF EXAM: 09/08/2022 COMPARISON: Chest x-ray one day earlier and older studies. HISTORY: Pneumonia. TECHNIQUE: Frontal and lateral views of the chest are obtained. FINDINGS: Somewhat low lung volumes with reticular increased markings is redemonstrated. Not signifi cantly changed from prior studies. No new focal consolidation, pleural effusion, or pneumothorax is s een bilaterally. The cardiac silhouette size remains within normal limits. The osseous structures are intact. IMPRESSION: Increased markings favor chronic parenchymal changes. No new focal consolidation.
[2022-09-08] MEDS: IPRATROPIUM-ALBUTEROL 3 ML NEB INHALATION SCH ×4 (07:34→19:30)
[2022-09-08] MEDS: AZITHROMYCIN 500 MG in SODIUM CHLORIDE 0.9% 250 ML IVPB SCH (09:17)
[2022-09-08] MEDS ORDERED: ONDANSETRON 4 MG/2 ML VIAL IVP PRN (10:07)
[2022-09-08] MEDS ORDERED: ACETAMINOPHEN TAB 325 MG TAB PO PRN (10:07)
[2022-09-08] MEDS ORDERED: NALOXONE 0.4 MG/ML 1 ML VIAL IV PRN (10:07)
[2022-09-08] MEDS ORDERED: LACTULOSE 20 GM/30 ML CUP PO PRN (10:07)
[2022-09-08] MEDS ORDERED: ALPRAZolam 0.25 MG TAB PO PRN (10:07)
[2022-09-08] MEDS ORDERED: CALCIUM CARBONATE 500 MG CHEWABLE PO PRN (10:07)
[2022-09-08] MEDS: BUDESONIDE 1 MG/2 ML NEBU INHALATION SCH ×2 (11:29→19:30)
[2022-09-08] MEDS: ENOXAPARIN 40 MG/0.4 ML SYRINGE SQ SCH (12:17)
[2022-09-08 14:01] VITALS: BMI 46.8
--- NOTE | 2022-09-08 17:21 | P.HPIM ---
History of Present Illness H&P Date: 09/08/22 Chief Complaint: Shortness of breath This is a 52-year-old patient follows a Dr. Mueller. 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 Patient now for about a week has been increasingly short of breath. Getting tired easily with activity. Wheezing for last 2 days. Has got a cough with sputum production of yellow to green. Denies any fever and chills. Appetite is fair. Tired. Review of systems: GEN.: Tired EYES: None HEENT: None NECK: None RESPIRATORY: As above CARDIOVASCULAR: No chest pain GASTROINTESTINAL: None GENITOURINARY: None MUSCULOSKELETAL: None LYMPHATICS: None HEMATOLOGICAL: None PSYCHIATRY: None NEUROLOGICAL: None Past medical history to include: Asthma, hypertension, hyperlipidemia, obstructive sleep apnea, depression splenectomy Social history: No smoking or alcohol. 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 Son at home Physical examination: VITAL SIGNS: 97.7, 83, 24, 133/81, 96% room air-upon presentation GENERAL: BMI 46.9, reclining in bed slightly short of breath. EYES: Pupils equal. Conjunctiva normal. HEENT: External appearance of nose and ears normal, oral cavity grossly normal. NECK: JVD not raised; masses not palpable. HEART: First and second heart sounds are normal; no edema. LUNGS: Respiratory rate increased; decreased breath sounds. ABDOMEN: Soft, nontender, liver spleen not palpable, no masses palpable. PSYCH: Alert and oriented x3; mood and affect normal. MUSCULOSKELETAL:No Clubbing/cyanosis;muscles-grossly intact NEUROLOGICAL: Cranial nerves grossly intact; no facial asymmetry, power and sensation grossly intact. LYMPHATICS: No lymph nodes palpable in the axilla and neck INVESTIGATIONS, reviewed in the clinical context: White count 8.3 hemoglobin 14.5 platelets 23 potassium 4.8 creatinine 0.93 Procalcitonin 0.04 Influenza type A/diabetes/RSV/COVID-19: Not detected EKG tracing personally reviewed by me-normal sinus rhythm Chest x-ray film personally reviewed by me-some scattered infiltrates Assessment plan: -Acute pneumonia suspect gram-negative organism Ceftriaxone, Zithromax -Intermittent asthma with acute exacerbation DuoNeb 4 times a day, IV Solu-Medrol, nebulized Pulmicort -Obesity BMI 46.9 Weight loss measures discussed. Consult dietitian for the same. -Essential hypertension Zestril, hydrochlorothiazide -Depression otherwise specified Prozac -Hyperlipidemia Lipitor 20 mg daily at bedtime -We'll code DuoNeb, IV Solu-Medrol, nebulized Pulmicort, consult dietitian, IV ceftriaxone Zithromax, sputum for Gram stain and culture. Care was discussed with the patient. Questions answered. Past Medical History Past Medical History: Asthma, Hyperlipidemia, Hypertension, Sleep Apnea/CPAP/BIPAP Additional Past Medical History / Comment(s): Bronchitis, STEPHEN being worked up, black mold exposure at work per pt. 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 Past Anesthesia/Blood Transfusion Reactions: No Reported Reaction Past Psychological History: Depression Additional Psychological History / Comment(s): Pt states he is on zoloft for depression and his anamaria says it is helping. Pt resides with his anamaria. 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 He is independent. Smoking Status: Never smoker Past Alcohol Use History: None Reported Past Drug Use History: None Reported - Past Family History Mother Additional Family Medical History / Comment(s): "She's alive." Father Family Medical History: Cancer, Coronary Artery Disease (CAD) Additional Family Medical History / Comment(s): Father had cancer which pt t hinks was colon cancer. Medications and Allergies Home Medications Medication Instructions Recorded Confirmed Type Atorvastatin [Lipitor] 20 mg PO HS@2200 08/21/17 09/07/22 History hydroCHLOROthiazide 25 mg PO HS@2200 08/21/17 09/07/22 History lisinopriL [Zestril] 20 mg PO HS@2200 08/21/17 09/07/22 History FLUoxetine HCL [PROzac] 20 mg PO HS@2200 07/21/22 09/07/22 History Allergies Allergy/AdvReac Type Severity Reaction Status Date / Time No Known Allergies Allergy Verified 07/21/22 10:37 Physical Exam Vitals: Vital Signs Temp Pulse Pulse Resp BP BP Pulse Ox 09/08/22 07:47 70 09/08/22 07:34 68 97 09/08/22 07:00 97.4 F L 67 18 124/69 97 09/08/22 02:00 97.5 F L 76 20 133/68 94 L 09/07/22 20:25 98.1 F 84 18 144/78 92 L 09/07/22 18:21 97.7 F 87 16 146/90 93 L 09/07/22 17:48 79 16 142/99 92 L 09/07/22 17:17 94 L 09/07/22 16:59 74 09/07/22 16:43 74 09/07/22 15:02 65 20 133/81 96 09/07/22 13:26 97.7 F 83 24 225/70 98 Intake and Output 09/07/22 09/08/22 09/08/22 22:59 06:59 14:59 Intake Total 240 Balance 240 Intake: Oral 240 Other: Voiding Method Toilet # Voids 1 2 Weight 165.561 kg Results CBC & Chem 7: 09/07/22 14:26 09/07/22 14:26 Labs: Abnormal Lab Results - Last 24 Hours (Table) 09/07/22 09/07/22 Range/Units 14:26 14:26 Eosinophils # 0.9 H (0-0.7) k/uL Glucose 104 H (74-99) mg/dL Thrombosis Risk Factor Assmnt - Choose All That Apply Each Factor Represents 1 point: Age 41-60 years Thrombosis Risk Factor Assessment Total Risk Factor Score: 1 Thrombosis Risk Factor Assessment Level: Low Risk
[2022-09-08] MEDS: hydroCHLOROthiazide 25 MG TAB PO SCH (21:37)
[2022-09-08] MEDS: FLUoxetine HCL 20 MG CAP PO SCH (21:37)
[2022-09-08] MEDS: lisinopriL 20 MG TAB PO SCH (21:37)
[2022-09-08] MEDS: ATORVASTATIN 20 MG TAB PO SCH (21:37)
[2022-09-09] MEDS: methylPREDNISolone SOD SUCCI 40 MG/ML 1 ML VIAL IV SCH ×3 (00:09→16:57)
[2022-09-09] MEDS: IPRATROPIUM-ALBUTEROL 3 ML NEB INHALATION SCH ×4 (07:24→20:20)
[2022-09-09] MEDS: BUDESONIDE 1 MG/2 ML NEBU INHALATION SCH ×2 (07:24→20:20)
[2022-09-09] MEDS: ENOXAPARIN 40 MG/0.4 ML SYRINGE SQ SCH ×2 (09:03→09:11)
[2022-09-09] MEDS: SODIUM CHLORIDE 0.9% 1,000 ML IV SCH ×2 (09:11→21:04)
[2022-09-09] MEDS: AZITHROMYCIN 500 MG in SODIUM CHLORIDE 0.9% 250 ML IVPB SCH (10:09)
--- NOTE | 2022-09-09 17:03 | P.PN ---
Progress Note - Text Progress Note Date: 09/09/22 Chief Complaint: Shortness of breath This is a 52-year-old patient follows a Dr. Mueller. 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 Patient now for about a week has been increasingly short of breath. Getting tired easily with activity. Wheezing for last 2 days. Has got a cough with sputum production of yellow to green. Denies any fever and chills. Appetite is fair. Tired. Admitted with acute asthma exacerbation with pneumonia. Started on DuoNeb, ceftriaxone, Zithromax, IV Solu-Medrol. 09/09/2022: Still bringing up some sputum yellow green. Some improvement in wheezing and coughing. Decreased activity. Up in a chair. Did walk a bit. Cultures pending. Active Medications Acetaminophen (Acetaminophen Tab 325 Mg Tab) 650 mg PO Q6HR PRN PRN Reason: Mild Pain or Fever > 100.5 Albuterol/Ipratropium (Ipratropium-Albuterol 3 Ml Neb) 3 ml INHALATION RT-QID [facility] Last Admin: 09/09/22 16:01 Dose: Not Given Albuterol/Ipratropium (Ipratropium-Albuterol 3 Ml Neb) 3 ml INHALATION RT-Q2H PRN PRN Reason: Shortness Of Breath Or Wheezing Alprazolam (Alprazolam 0.25 Mg Tab) 0.25 mg PO Q6HR PRN PRN Reason: Anxiety Atorvastatin Calcium (Atorvastatin 20 Mg Tab) 20 mg PO HS@2200 [facility] Last Admin: 09/08/22 21:37 Dose: 20 mg Budesonide (Budesonide 1 Mg/2 Ml Nebu) 1 mg INHALATION RT-BID [facility] Last Admin: 09/09/22 07:24 Dose: 1 mg Calcium Carbonate/Glycine (Calcium Carbonate 500 Mg Chewable) 1,000 mg PO Q4HR PRN PRN Reason: Dyspepsia Enoxaparin Sodium (Enoxaparin 40 Mg/0.4 Ml Syringe) 40 mg SQ DAILY [facility] Last Admin: 09/09/22 09:11 Dose: Not Given Fluoxetine HCl (Fluoxetine Hcl 20 Mg Cap) 20 mg PO HS@2200 [facility] Last Admin: 09/08/22 21:37 Dose: 20 mg Hydrochlorothiazide (Hydrochlorothiazide 25 Mg Tab) 25 mg PO HS@2200 [facility] Last Admin: 09/08/22 21:37 Dose: 25 mg Sodium Chloride (Saline 0.9%) 1,000 mls @ 100 mls/hr IV .Q10H [facility] Last Admin: 09/09/22 09:11 Dose: 100 mls/hr Ceftriaxone Sodium 2 gm/ (Sodium Chloride) 50 mls @ 100 mls/hr IVPB Q24HR [facility]; Protocol Stop: 09/11/22 09:29 Last Admin: 09/09/22 09:05 Dose: 100 mls/hr Azithromycin 500 mg/ Sodium (Chloride) 250 mls @ 250 mls/hr IVPB DAILY [facility]; Protocol Stop: 09/11/22 09:01 Last Admin: 09/09/22 10:09 Dose: 250 mls/hr Lactulose (Lactulose 20 Gm/30 Ml Cup) 20 gm PO DAILY PRN PRN Reason: Constipation Lisinopril (Lisinopril 20 Mg Tab) 20 mg PO HS@2200 [facility] Last Admin: 09/08/22 21:37 Dose: 20 mg Methylprednisolone Sodium Succinate (Methylprednisolone Sod Succi 40 Mg/Ml 1 Ml Vial) 40 mg IV Q8HR [facility] Last Admin: 09/09/22 16:57 Dose: 40 mg Miscellaneous Information (Pneumonia Protocol Utilized 1 Each Misc) 1 each PO ONCE PRN PRN Reason: Per Protocol Naloxone HCl (Naloxone 0.4 Mg/Ml 1 Ml Vial) 0.2 mg IV Q2M PRN PRN Reason: Opioid Reversal Ondansetron HCl (Ondansetron 4 Mg/2 Ml Vial) 4 mg IVP Q8HR PRN PRN Reason: Nausea And Vomiting Past medical history to include: Asthma, hypertension, hyperlipidemia, obstructive sleep apnea, depression splenectomy Social history: No smoking or alcohol. 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 Son at home Physical examination: VITAL SIGNS: 98.2, 79, 18, 125/71, 92% room air GENERAL: Comfortable, breathing better EYES: Pupils equal. Conjunctiva normal. HEENT: External appearance of nose and ears normal, oral cavity grossly normal. NECK: JVD not raised; masses not palpable. HEART: First and second heart sounds are normal; no edema. LUNGS: Respiratory rate increased; better air entry ABDOMEN: Soft, nontender, liver spleen not palpable, no masses palpable. PSYCH: Alert and oriented x3; mood and affect normal. MUSCULOSKELETAL:No Clubbing/cyanosis;muscles-grossly intact INVESTIGATIONS, reviewed in the clinical context: White count 8.3 hemoglobin 14.5 platelets 23 potassium 4.8 creatinine 0.93 Procalcitonin 0.04 Influenza type A/diabetes/RSV/COVID-19: Not detected EKG tracing personally reviewed by me-normal sinus rhythm Chest x-ray film personally reviewed by me-some scattered infiltrates Assessment plan: -Acute pneumonia suspect gram-negative organism Ceftriaxone, Zithromax -Intermittent asthma with acute exacerbation, improving DuoNeb 4 times a day, IV Solu-Medrol, nebulized Pulmicort -Obesity BMI 46.9 Weight loss measures discussed. Consult dietitian for the same. -Essential hypertension Zestril, hydrochlorothiazide -Depression otherwise specified Prozac -Hyperlipidemia Lipitor 20 mg daily at bedtime -We'll code DuoNeb, IV Solu-Medrol, nebulized Pulmicort, , IV ceftriaxone Zithromax, sputum culture pending Care was discussed with the patient. Increase activity.
[2022-09-09] MEDS: ATORVASTATIN 20 MG TAB PO SCH (21:03)
[2022-09-09] MEDS: hydroCHLOROthiazide 25 MG TAB PO SCH (21:03)
[2022-09-09] MEDS: lisinopriL 20 MG TAB PO SCH (21:03)
[2022-09-09] MEDS: FLUoxetine HCL 20 MG CAP PO SCH (21:04)
[2022-09-10] MEDS: methylPREDNISolone SOD SUCCI 40 MG/ML 1 ML VIAL IV SCH ×3 (00:53→17:29)
[2022-09-10] MEDS: SODIUM CHLORIDE 0.9% 1,000 ML IV SCH ×2 (07:42→17:01)
[2022-09-10] MEDS: BUDESONIDE 1 MG/2 ML NEBU INHALATION SCH ×2 (08:05→20:03)
[2022-09-10] MEDS: IPRATROPIUM-ALBUTEROL 3 ML NEB INHALATION SCH ×4 (08:05→20:02)
[2022-09-10] MEDS: ENOXAPARIN 40 MG/0.4 ML SYRINGE SQ SCH (08:25)
[2022-09-10] MEDS: AZITHROMYCIN 500 MG in SODIUM CHLORIDE 0.9% 250 ML IVPB SCH (08:27)
--- NOTE | 2022-09-10 17:27 | P.PN ---
Progress Note - Text Progress Note Date: 09/10/22 Chief Complaint: Shortness of breath This is a 52-year-old patient follows a Dr. Mueller. 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 Patient now for about a week has been increasingly short of breath. Getting tired easily with activity. Wheezing for last 2 days. Has got a cough with sputum production of yellow to green. Denies any fever and chills. Appetite is fair. Tired. Admitted with acute asthma exacerbation with pneumonia. Started on DuoNeb, ceftriaxone, Zithromax, IV Solu-Medrol. 09/09/2022: Still bringing up some sputum yellow green. Some improvement in wheezing and coughing. Decreased activity. Up in a chair. Did walk a bit. Cultures pending. 09/10/2022: Breathing better. Coughing up sputum. Cultures pending. Increased activity. Feeling a bit better. Discussed with patient. Active Medications Acetaminophen (Acetaminophen Tab 325 Mg Tab) 650 mg PO Q6HR PRN PRN Reason: Mild Pain or Fever > 100.5 Albuterol/Ipratropium (Ipratropium-Albuterol 3 Ml Neb) 3 ml INHALATION RT-QID [facility] Last Admin: 09/10/22 15:20 Dose: 3 ml Albuterol/Ipratropium (Ipratropium-Albuterol 3 Ml Neb) 3 ml INHALATION RT-Q2H PRN PRN Reason: Shortness Of Breath Or Wheezing Alprazolam (Alprazolam 0.25 Mg Tab) 0.25 mg PO Q6HR PRN PRN Reason: Anxiety Atorvastatin Calcium (Atorvastatin 20 Mg Tab) 20 mg PO HS@2200 [facility] Last Admin: 09/09/22 21:03 Dose: 20 mg Budesonide (Budesonide 1 Mg/2 Ml Nebu) 1 mg INHALATION RT-BID [facility] Last Admin: 09/10/22 08:05 Dose: 1 mg Calcium Carbonate/Glycine (Calcium Carbonate 500 Mg Chewable) 1,000 mg PO Q4HR PRN PRN Reason: Dyspepsia Enoxaparin Sodium (Enoxaparin 40 Mg/0.4 Ml Syringe) 40 mg SQ DAILY [facility] Last Admin: 09/10/22 08:25 Dose: Not Given Fluoxetine HCl (Fluoxetine Hcl 20 Mg Cap) 20 mg PO HS@2200 [facility] Last Admin: 09/09/22 21:04 Dose: 20 mg Hydrochlorothiazide (Hydrochlorothiazide 25 Mg Tab) 25 mg PO HS@2200 [facility] Last Admin: 09/09/22 21:03 Dose: 25 mg Sodium Chloride (Saline 0.9%) 1,000 mls @ 100 mls/hr IV .Q10H [facility] Last Admin: 09/10/22 17:01 Dose: Not Given Ceftriaxone Sodium 2 gm/ (Sodium Chloride) 50 mls @ 100 mls/hr IVPB Q24HR [facility]; Protocol Stop: 09/11/22 09:29 Last Admin: 09/10/22 11:33 Dose: 100 mls/hr Azithromycin 500 mg/ Sodium (Chloride) 250 mls @ 250 mls/hr IVPB DAILY [facility]; Protocol Stop: 09/11/22 09:01 Last Admin: 09/10/22 08:27 Dose: 250 mls/hr Lactulose (Lactulose 20 Gm/30 Ml Cup) 20 gm PO DAILY PRN PRN Reason: Constipation Lisinopril (Lisinopril 20 Mg Tab) 20 mg PO HS@2200 [facility] Last Admin: 09/09/22 21:03 Dose: 20 mg Methylprednisolone Sodium Succinate (Methylprednisolone Sod Succi 40 Mg/Ml 1 Ml Vial) 40 mg IV Q8HR [facility] Last Admin: 09/10/22 08:27 Dose: 40 mg Miscellaneous Information (Pneumonia Protocol Utilized 1 Each Misc) 1 each PO ONCE PRN PRN Reason: Per Protocol Naloxone HCl (Naloxone 0.4 Mg/Ml 1 Ml Vial) 0.2 mg IV Q2M PRN PRN Reason: Opioid Reversal Ondansetron HCl (Ondansetron 4 Mg/2 Ml Vial) 4 mg IVP Q8HR PRN PRN Reason: Nausea And Vomiting Past medical history to include: Asthma, hypertension, hyperlipidemia, obstructive sleep apnea, depression splenectomy Social history: No smoking or alcohol. 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 Son at home Physical examination: VITAL SIGNS: 98, 73, 18, 140/79, 92% room air GENERAL: Comfortable, breathing better EYES: Pupils equal. Conjunctiva normal. HEENT: External appearance of nose and ears normal, oral cavity grossly normal. NECK: JVD not raised; masses not palpable. HEART: First and second heart sounds are normal; no edema. LUNGS: Respiratory rate increased; better air entry ABDOMEN: Soft, nontender, liver spleen not palpable, no masses palpable. PSYCH: Alert and oriented x3; mood and affect normal. MUSCULOSKELETAL:No Clubbing/cyanosis;muscles-grossly intact INVESTIGATIONS, reviewed in the clinical context: White count 8.3 hemoglobin 14.5 platelets 23 potassium 4.8 creatinine 0.93 Procalcitonin 0.04 Influenza type A/diabetes/RSV/COVID-19: Not detected EKG tracing personally reviewed by me-normal sinus rhythm Chest x-ray film personally reviewed by me-some scattered infiltrates Assessment plan: -Acute pneumonia suspect gram-negative organism: Slowly improving Ceftriaxone, Zithromax -Intermittent asthma with acute exacerbation, improving DuoNeb 4 times a day, IV Solu-Medrol, nebulized Pulmicort -Obesity BMI 46.9 Weight loss measures discussed. Consult dietitian for the same. -Essential hypertension Zestril, hydrochlorothiazide -Depression otherwise specified Prozac -Hyperlipidemia Lipitor 20 mg daily at bedtime -Follow code DuoNeb, IV [id number] to prednisone tomorrow, nebulized Pulmicort, , IV ceftriaxone Zithromax, present today. Hopefully discharge tomorrow.
[2022-09-10] MEDS: FLUoxetine HCL 20 MG CAP PO SCH (21:32)
[2022-09-10] MEDS: hydroCHLOROthiazide 25 MG TAB PO SCH (21:32)
[2022-09-10] MEDS: ATORVASTATIN 20 MG TAB PO SCH (21:32)
[2022-09-10] MEDS: lisinopriL 20 MG TAB PO SCH (21:32)
[2022-09-11] MEDS: SODIUM CHLORIDE 0.9% 1,000 ML IV SCH (04:15)
[2022-09-11 07:54] VITALS: BP 143/76; RESP 18; TEMP 97.4
[2022-09-11] MEDS: IPRATROPIUM-ALBUTEROL 3 ML NEB INHALATION SCH ×2 (08:13→11:41)
[2022-09-11] MEDS: BUDESONIDE 1 MG/2 ML NEBU INHALATION SCH (08:13)
[2022-09-11 08:16] VITALS: PULSE 64
[2022-09-11] MEDS ORDERED: predniSONE 20 MG TAB PO SCH (09:00)
[2022-09-11] MEDS: AZITHROMYCIN 500 MG in SODIUM CHLORIDE 0.9% 250 ML IVPB SCH (09:40)
[2022-09-11] MEDS: ENOXAPARIN 40 MG/0.4 ML SYRINGE SQ SCH (10:21)
--- NOTE | 2022-09-11 19:25 | P.DS ---
Providers Date of admission: 09/07/22 17:17 Expected date of discharge: 09/11/22 Attending physician: Jose Alejandro Lorenz Primary care physician: Barry Mueller [facility] Course: Chief Complaint: Shortness of breath This is a 52-year-old patient follows a Dr. Mueller. 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 Patient now for about a week has been increasingly short of breath. Getting tired easily with activity. Wheezing for last 2 days. Has got a cough with sputum production of yellow to green. Denies any fever and chills. Appetite is fair. Tired. Admitted with acute asthma exacerbation with pneumonia. Started on DuoNeb, ceftriaxone, Zithromax, IV Solu-Medrol. 09/09/2022: Still bringing up some sputum yellow green. Some improvement in wheezing and coughing. Decreased activity. Up in a chair. Did walk a bit. Cultures pending. 09/10/2022: Breathing better. Coughing up sputum. Cultures pending. Increased activity. Feeling a bit better. Discussed with patient. 09/11/2022: Breathing stable. Sputum decrease. Cultures negative. Discussed. 3 more days of Ceftin. Past medical history include: Asthma, hypertension, hyperlipidemia, obstructive sleep apnea, depression splenectomy Social history: No smoking or alcohol. 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 Son at home Physical examination: VITAL SIGNS: 97.4, 64, 18, 143 with 76, 92% room air GENERAL: Comfortable, EYES: Pupils equal. Conjunctiva normal. HEENT: External appearance of nose and ears normal, oral cavity grossly normal. NECK: JVD not raised; masses not palpable. HEART: First and second heart sounds are normal; no edema. LUNGS: Respiratory rate normal; better air entry ABDOMEN: Soft, nontender, liver spleen not palpable, no masses palpable. PSYCH: Alert and oriented x3; mood and affect normal. MUSCULOSKELETAL:No Clubbing/cyanosis;muscles-grossly intact INVESTIGATIONS, reviewed in the clinical context: White count 8.3 hemoglobin 14.5 platelets 23 potassium 4.8 creatinine 0.93 Procalcitonin 0.04 Influenza type A/diabetes/RSV/COVID-19: Not detected EKG tracing personally reviewed by me-normal sinus rhythm Chest x-ray film personally reviewed by me-some scattered infiltrates Assessment plan: -Acute pneumonia suspect gram-negative organism: Better Ceftriaxone, Zithromax. Complete 3 more days of Ceftin -Intermittent asthma with acute exacerbation, improving DCR prednisone taper, albuterol when necessary -Obesity BMI 46.9 Weight loss measures discussed. Consult dietitian for the same. -Essential hypertension Zestril, hydrochlorothiazide -Depression otherwise specified Prozac -Hyperlipidemia Lipitor 20 mg daily at bedtime -Full code Disposition: Home Patient Condition at Discharge: Stable Plan - Discharge Summary New Discharge Prescriptions: New Albuterol Sulfate [Albuterol Sulfate Hfa] 1 puff PO Q4-6H #8.5 gm predniSONE 10 mg PO DAILY #30 tab cefUROXime axetiL [Ceftin] 500 mg PO BID #6 tab Continue lisinopriL [Zestril] 20 mg PO HS@2200 hydroCHLOROthiazide 25 mg PO HS@2200 Atorvastatin [Lipitor] 20 mg PO HS@2200 FLUoxetine HCL [PROzac] 20 mg PO HS@2200 Discharge Medication List Atorvastatin [Lipitor] 20 mg PO HS@2200 08/21/17 [History] hydroCHLOROthiazide 25 mg PO HS@2200 08/21/17 [History] lisinopriL [Zestril] 20 mg PO HS@2200 08/21/17 [History] FLUoxetine HCL [PROzac] 20 mg PO HS@2200 07/21/22 [History] Albuterol Sulfate [Albuterol Sulfate Hfa] 1 puff PO Q4-6H #8.5 gm 09/11/22 [Rx] cefUROXime axetiL [Ceftin] 500 mg PO BID #6 tab 09/11/22 [Rx] predniSONE 10 mg PO DAILY #30 tab 09/11/22 [Rx] Follow up Appointment(s)/Referral(s): Barry Mueller DO [Primary Care Provider] - 1-2 days (office will call for appt.) Patient Instructions/Handouts: Cefuroxime (By mouth), Albuterol (By breathing), Prednisone (By mouth), Asthma (DC), Pneumonia (DC) Discharge Disposition: HOME SELF-CARE
== END 2022-09-11 12:33 | disposition home or self-care (01) | DRG 178 ==
LOC: EC 13:18 → 5NMEDONC 17:17
PROVIDERS: ADMIT Hospitalist; ATTEND Hospitalist
DX: J15.6 Pneumonia due to other Gram-negative bacteria (principal); J45.21 Mild intermittent asthma with (acute) exacerbation; Z68.42 Body mass index [BMI] 45.0-49.9, adult; I10 Essential (primary) hypertension; F32.A Depression, unspecified; E66.9 Obesity, unspecified; G47.33 Obstructive sleep apnea (adult) (pediatric); E78.5 Hyperlipidemia, unspecified; Z20.822 Contact with and (suspected) exposure to COVID-19; Z90.81 Acquired absence of spleen; Z71.3 Dietary counseling and surveillance; Z77.120 Contact with and (suspected) exposure to mold (toxic); Z79.899 Other long term (current) drug therapy; Z28.310 Unvaccinated for COVID-19
CPT/HCPCS: 36415; 71046; 80053; 83605; 83735; 84145; 84484; 85025; 85610; 85730; 87040; 87070; 87205; 87636; 93005; 94640; 94760; 96374; 96375; 99285